=== PATIENT | female | born 1960 | race Caucasian/White ===

== ENCOUNTER → 2018-09-30 11:53 | Outpatient (CLI) | payer OTHER, SELFPAY ==
--- NOTE | 2018-09-30 | DI.RAD.S_ITS ---
PROCEDURE: XR HIP W PEL IF DONE LT 2V INDICATIONS: LEFT HIP PAIN TECHNIQUE: AP view of the pelvis and lateral view of the left hip were obtained. COMPARISON: None. FINDINGS: Bones: No fractures or dislocations. The visualized pelvic ring appears intact. Soft tissues: Round calcified pelvic phleboliths noted. Mild soft tissue calcifications adjacent the greater trochanters bilaterally, likely representing the sequela of chronic enthesopathy. IMPRESSION: No acute osseous abnormality of the left hip. Dictated by: Pedrito Calderon M.D. on 09/30/2018 at 13:39 Approved by: Pedrito Calderon M.D. on 09/30/2018 at 13:42
== END ==
PROVIDERS: PCP Family Medicine; Visit Provider Family Medicine
DX: M25.552 Pain in left hip (principal)
CPT/HCPCS: 73502

== ENCOUNTER → 2018-10-23 11:28 | Outpatient (CLI) | payer OTHER, SELFPAY ==
--- NOTE | 2018-10-23 | DI.MG.S_ITS ---
BILATERAL DIGITAL SCREENING MAMMOGRAM 3D/2D WITH CAD: 10/23/2018 CLINICAL: Routine screening. Family history of breast cancer. Comparison is made to exams dated: 09/19/2017 mammogram, 09/20/2016 mammogram, and 09/15/2015 mammogram - [facility]. There are scattered fibroglandular elements in both breasts. Current study was also evaluated with a Computer Aided Detection (CAD) system. There are benign calcifications in both breasts. No significant masses, calcifications, or other findings are seen in either breast. There has been no significant interval change. IMPRESSION: There is no mammographic evidence of malignancy. A 1 year screening mammogram is recommended. This exam was interpreted at Station ID: [id number]. NOTE: For mammograms, a report in lay terms will be sent to the patient. Approximately 15% of breast malignancies will not be visualized mammographically. In the management of a palpable breast mass, a negative mammogram must not discourage biopsy of a clinically suspicious lesion. Electronically Signed By: Tacho [email or web address]/[email or web address]:10/23/2018 12:58:56 copy to: Gabby Garcia letter sent: Normal Exam ACR BI-RADS Category 2: Benign Finding(s) [id number]
== END ==
PROVIDERS: Family Provider Obstetrics & Gynecology; PCP Family Medicine; Visit Provider Family Medicine
DX: Z12.31 Encounter for screening mammogram for malignant neoplasm of breast (principal); Z80.3 Family history of malignant neoplasm of breast
CPT/HCPCS: 77063; 77067

== ENCOUNTER 2019-02-08 13:45 | Outpatient (RCR) | payer BC, SELFPAY ==
--- NOTE | 2018-12-28 16:33 | PT.OIE ---
Current Diagnoses Sacroiliitis, not elsewhere classified (12/28/18) Low back pain (12/28/18) Trochanteric bursitis, left hip (12/28/18) Iliotibial band syndrome, left leg (12/28/18) Past Medical History (Last Reviewed 07/06/18 @ 12:18 by Jonathan Gracia MD) Allergic rhinitis (Chronic ~1979) Chronic back pain (Chronic ~1979) Osteoarthritis (Chronic Unknown) Restless leg syndrome (Chronic ~2009) Rosacea (Chronic Unknown) Sleep apnea (Chronic ~1979) Tinnitus of both ears (Chronic ~2010) Abnormal Pap smear of cervix (Resolved ~2016) Acne (Resolved ~1969) Anemia (Resolved ~1979) Ankle pain (Resolved ~1969) Carpal tunnel syndrome (Resolved 1996) Cataracts, bilateral (Resolved ~2009) Chickenpox (Resolved) De Quervain's syndrome (tenosynovitis) (Resolved ~1989) Fibroids (Resolved 1995) Foot pain (Resolved ~1979) Heavy menstrual period (Resolved ~1969) Measles (Resolved) Mumps (Resolved) Ovarian cyst (Resolved 2002) Painful menstrual periods (Resolved ~1969) Urinary incontinence (Resolved 1996) Abnormal Pap smear of cervix (Inactive) Acne (Inactive ~1969) Anemia (Inactive ~1979) Ankle pain (Inactive ~1969) Carpal tunnel syndrome (Inactive ~1996) Chronic back pain (Inactive ~1979) Fibroids (Inactive ~1995) Foot pain (Inactive ~1979) History of heavy periods (Inactive ~1969) History of painful menstruation (Inactive ~1969) Osteoarthritis (Inactive) Ovarian cyst (Inactive ~2002) Rosacea (Inactive) Seasonal allergies (Inactive ~1979) Sleep apnea (Inactive ~1979) Tinnitus (Inactive ~2010) Urinary incontinence (Inactive ~1996) Past Surgical History (Last Reviewed 07/06/18 @ 12:18 by Jonathan Gracia MD) Hx of partial cystectomy (Resolved 2002) Hx of thumb surgery (Resolved ~1994) History of carpal tunnel repair History of cataract removal with insertion of prosthetic lens (~2009) Status post hysterectomy (12/2007) Status post knee surgery (12/06/13) Status post knee surgery Status post knee surgery Status post rotator cuff repair Provider Visit Care Team Role Provider Type Chaitanya Andrews MD Primary Care Provider Physician Specialty: [facility] Address: [address] [place] [address], [id number] Email: Paul Wang MD Attending Provider Physician Specialty: Orthopedic Surgery Address: [address] [place] [address], [id number] Email: [email or web address] [facility] Initial Evaluation PT-OP-A Visit Information Start: 12/28/18 08:14 Freq: Status: Active Protocol: Document 12/28/18 09:30 AMB (Rec: 12/28/18 15:49 AMB [email or web address]) Out-Patient Physical Therapy Visit Information Visit Information Visit Type Initial Evaluation Visit Start Time 09:30 Visit Stop Time 10:15 Total Visit Minutes 45 Visit Number 1 PT-OP-B Current Condition Start: 12/28/18 08:14 Freq: Status: Active Protocol: Document 12/28/18 09:30 AMB (Rec: 12/28/18 09:38 AMB [id number]) Current Condition History of Current Condition Onset Date Years Current Complaints low back tightness History of Current Condition Myesha reports chronic low back pain that has been going on for years. At this point she has trouble walking when she first gets up. Walking feels ok while doing it, but then the back hurts during the last bit of the walk and afterwards. Sitting is helpful. This has been going on for years, but got worse after left hip pain which has now almost resolved. She kicked her leg and twisted and had left hip/groin pain. Back tightness is also bad in the morning, but better with movement. Prior Functional Status Baseline Function- ADL's Independent Baseline Function- Mobility Independent Current Functional Impairments (Reported) Functional Limitations- ADL's Pain with bed mobility Functional Limitations- Mobility/Gait Pain after 1/2 mile of walking . Personal Factors Other Personal Factors That May Effect Recent left hip pain. Therapy/Recovery Hysterectomy in 2007. Multiple knee arthroscopies. PT-OP-C Subjective Start: 12/28/18 08:14 Freq: Status: Active Protocol: Document 12/28/18 09:30 AMB (Rec: 12/28/18 15:49 AMB [email or web address]) OP-PT Pain Assessment Location Lower Back Pain Location Details Low back/ left groin Intensity 4 Scale Used Numeric (1 - 10) Description Tightness Frequency Constant Pain Aggravating Factors Changing Position ADL's Walking PT-OP-G Mobility & Gait Start: 12/28/18 08:14 Freq: Status: Active Protocol: Document 12/28/18 09:30 AMB (Rec: 12/28/18 16:05 AMB [email or web address]) OP Mobility Evaluation Bed Mobility Rolling Pain with rolling over in the morning PT-OP-J Posture/Palpation/Skin Start: 12/28/18 08:14 Freq: Status: Active Protocol: Document 12/28/18 09:30 AMB (Rec: 12/28/18 16:05 AMB [email or web address]) Posture Evaluation Comments Posture Comments Increased lumbar lordosis and anterior pelvic tilt and left shoulder high in standing. PT-OP-K Range of Motion Start: 12/28/18 08:14 Freq: Status: Active Protocol: Document 12/28/18 09:30 AMB (Rec: 12/28/18 16:05 AMB [email or web address]) Lumbar Spine Range of Motion Lumbar Spine Active Degrees Testing Position Standing Flexion 70 Extension 20 Lateral Flexion Left 20 Lateral Flexion Right 10 PT-OP-M Strength Start: 12/28/18 08:14 Freq: Status: Active Protocol: Document 12/28/18 09:30 AMB (Rec: 12/28/18 16:05 AMB [email or web address]) Hip Strength Hip Manual Muscle Testing Right Flexion (L2) 4+ Good+ Extension (S1) 4 Good Abduction 4+ Good+ Left Flexion (L2) 4- Good- Extension (S1) 3+ Fair+ Abduction 4- Good- PT-OP-Q Treatments Start: 12/28/18 08:14 Freq: Status: Active Protocol: Document 12/28/18 09:30 AMB (Rec: 12/28/18 16:32 AMB [email or web address]) Therapeutic Exercises Standing Exercises 1 Standing Exercise Name pelvic tilt Comments focus on posterior pelvic tilt Other Exercises 1 Other Exercise Name quadruped leg extension Comments physical cues for flat back PT-OP-T Assessment and Plan Start: 12/28/18 08:14 Freq: Status: Active Protocol: Document 12/28/18 09:30 AMB (Rec: 12/28/18 16:31 AMB [email or web address]) Physical Therapy Assessment Rehab Potential Rehabilitation Potential Good Evaluation Complexity Number of Personal Factors/Comorbidities 1-2 Impairments Impairments Gait Pain ROM Strength Goals Four Impairment ADLs Care Home Goal (LTG) Myesha will lift 10 pounds from the floor to waist height with 2/10 pain or less. LTG Duration 8 weeks Three Impairment Gait Food Stylist Goal (LTG) Myesha will walk for 1 mile with 2/10 pain or less. LTG Duration 8 weeks Two Impairment HEP Short Term Goal (STG) Myesha will be independent with a land and aquatic based HEP. STG Duration 4 weeks One Impairment Posture Short Term Goal (STG) Myesha will stand for 10 minutes with 2/10 pain and a neutral pelvic/ lumbar lordosis. STG Duration 4 weeks Assessment Summary Assessment Myesha attends physical therapy with a main concern of low back pain (pain worst over bilateral SI joints). She previously had left hip pain, but that has resolved well in her daily life, although was reproduced in testing with adductor stretch and resisted hip flexion. She is hoping to exercise in the pool, so we will incorporate aquatic therapy into her plan. She will benefit from core stability, focusing on the SI joint, although it was difficult to palpate due to her body habitus. She has also not met her deductible yet, which may be a limiting factor. Physical Therapy Plan Frequency and Duration Frequency of Treatment 2x/Week Duration of Treatment 8 weeks Plan of Care Start Date 12/28/18 Plan of Care End Date 02/22/19 Therapeutic Interventions Therapeutic Interventions Aquatic Therapy Home Exercise Program Manual Therapy Neuromuscular Re-education Self-Care/Home Management Therapeutic Activities Therapeutic Exercises Modalities Cold Pack/Ice Massage Electric Stimulation Ultrasound Next Visit Focus/Plan Next Note Type Treatment Note Next Visit Plan Progress core stability in quadruped, instruct in stretching HEP, start aquatic therapy
--- NOTE | 2018-12-28 16:34 | PT.OPPOC ---
Current Diagnoses Sacroiliitis, not elsewhere classified (12/28/18) Low back pain (12/28/18) Trochanteric bursitis, left hip (12/28/18) Iliotibial band syndrome, left leg (12/28/18) Provider Visit Care Team Role Provider Type Chaitanya Andrews MD Primary Care Provider Physician Specialty: [facility] Address: [address] [place] [address], [phone] Email: Paul Wang MD Attending Provider Physician Specialty: Orthopedic Surgery Address: [address] [place] [address], [phone] Email: [email or web address] Plan Of Care PT-OP-T Assessment and Plan Start: 12/28/18 08:14 Freq: Status: Active Protocol: Document 12/28/18 09:30 AMB (Rec: 12/28/18 16:31 AMB [email or web address]) Physical Therapy Assessment Rehab Potential Rehabilitation Potential Good Evaluation Complexity Number of Personal Factors/Comorbidities 1-2 Impairments Impairments Gait Pain ROM Strength Goals Four Impairment ADLs Dry Cell Sealer Goal (LTG) Myesha will lift 10 pounds from the floor to waist height with 2/10 pain or less. LTG Duration 8 weeks Three Impairment Gait Dry Cell Sealer Goal (LTG) Myesha will walk for 1 mile with 2/10 pain or less. LTG Duration 8 weeks Two Impairment HEP Short Term Goal (STG) Myesha will be independent with a land and aquatic based HEP. STG Duration 4 weeks One Impairment Posture Short Term Goal (STG) Myesha will stand for 10 minutes with 2/10 pain and a neutral pelvic/ lumbar lordosis. STG Duration 4 weeks Assessment Summary Assessment Myesha attends physical therapy with a main concern of low back pain (pain worst over bilateral SI joints). She previously had left hip pain, but that has resolved well in her daily life, although was reproduced in testing with adductor stretch and resisted hip flexion. She is hoping to exercise in the pool, so we will incorporate aquatic therapy into her plan. She will benefit from core stability, focusing on the SI joint, although it was difficult to palpate due to her body habitus. She has also not met her deductible yet, which may be a limiting factor. Physical Therapy Plan Frequency and Duration Frequency of Treatment 2x/Week Duration of Treatment 8 weeks Plan of Care Start Date 12/28/18 Plan of Care End Date 02/22/19 Therapeutic Interventions Therapeutic Interventions Aquatic Therapy Home Exercise Program Manual Therapy Neuromuscular Re-education Self-Care/Home Management Therapeutic Activities Therapeutic Exercises Modalities Cold Pack/Ice Massage Electric Stimulation Ultrasound Next Visit Focus/Plan Next Note Type Treatment Note Next Visit Plan Progress core stability in quadruped, instruct in stretching HEP, start aquatic therapy Plan of Care Dates Plan of Care Start Date 12/28/18 Plan of Care End Date 02/22/19 Please Sign and Return: I have reviewed this Plan of Care and certify that the skilled therapy services above are required to meet the patient?s needs. Physician Signature Date Printed Name and Credentials Clinical Instructor Signature Printed Name and Credentials
--- NOTE | 2018-12-30 12:00 | PT.OTN ---
Current Diagnoses Sacroiliitis, not elsewhere classified (12/30/18) Low back pain (12/30/18) Trochanteric bursitis, left hip (12/30/18) Iliotibial band syndrome, left leg (12/30/18) Physical Therapy Treatment Note PT-OP-A Visit Information Start: 12/28/18 08:14 Freq: Status: Active Protocol: Document 12/30/18 09:45 AMB (Rec: 12/30/18 10:08 AMB [id number]) Out-Patient Physical Therapy Visit Information Visit Information Visit Type Treatment Note Visit Start Time 09:45 Visit Stop Time 10:30 Total Visit Minutes 45 Visit Number 2 PT-OP-B Current Condition Start: 12/28/18 08:14 Freq: Status: Active Protocol: Document 12/28/18 09:30 AMB (Rec: 12/28/18 09:38 AMB [id number]) Current Condition History of Current Condition Onset Date Years Current Complaints low back tightness History of Current Condition Myesha reports chronic low back pain that has been going on for years. At this point she has trouble walking when she first gets up. Walking feels ok while doing it, but then the back hurts during the last bit of the walk and afterwards. Sitting is helpful. This has been going on for years, but got worse after left hip pain which has now almost resolved. She kicked her leg and twisted and had left hip/groin pain. Back tightness is also bad in the morning, but better with movement. Prior Functional Status Baseline Function- ADL's Independent Baseline Function- Mobility Independent Current Functional Impairments (Reported) Functional Limitations- ADL's Pain with bed mobility Functional Limitations- Mobility/Gait Pain after 1/2 mile of walking . Personal Factors Other Personal Factors That May Effect Recent left hip pain. Therapy/Recovery Hysterectomy in 2007. Multiple knee arthroscopies. PT-OP-C Subjective Start: 12/28/18 08:14 Freq: Status: Active Protocol: Document 12/30/18 09:45 AMB (Rec: 12/30/18 10:08 AMB [email or web address]) OP-PT Subjective Patient Comments Patient Comments Pt reports she felt a bit better after eval. PT-OP-G Mobility & Gait Start: 12/28/18 08:14 Freq: Status: Active Protocol: Document 12/28/18 09:30 AMB (Rec: 07/01/19 16:05 AMB [email or web address]) OP Mobility Evaluation Bed Mobility Rolling Pain with rolling over in the morning PT-OP-J Posture/Palpation/Skin Start: 12/28/18 08:14 Freq: Status: Active Protocol: Document 12/28/18 09:30 AMB (Rec: 12/28/18 16:05 AMB [email or web address]) Posture Evaluation Comments Posture Comments Increased lumbar lordosis and anterior pelvic tilt and left shoulder high in standing. PT-OP-K Range of Motion Start: 12/28/18 08:14 Freq: Status: Active Protocol: Document 12/28/18 09:30 AMB (Rec: 12/28/18 16:05 AMB [email or web address]) Lumbar Spine Range of Motion Lumbar Spine Active Degrees Testing Position Standing Flexion 70 Extension 20 Lateral Flexion Left 20 Lateral Flexion Right 10 PT-OP-M Strength Start: 12/28/18 08:14 Freq: Status: Active Protocol: Document 12/28/18 09:30 AMB (Rec: 12/28/18 16:05 AMB [email or web address]) Hip Strength Hip Manual Muscle Testing Right Flexion (L2) 4+ Good+ Extension (S1) 4 Good Abduction 4+ Good+ Left Flexion (L2) 4- Good- Extension (S1) 3+ Fair+ Abduction 4- Good- PT-OP-Q Treatments Start: 12/28/18 08:14 Freq: Status: Active Protocol: Document 12/30/18 09:45 AMB (Rec: 01/01/19 07:57 AMB [email or web address]) Therapeutic Exercises Supine Exercises 3 Supine Exercise Name LTR Reps/Minutes 10 2 Supine Exercise Name supine august with TrA/ posterior pelvic tilt Reps/Minutes 2x10 1 Supine Exercise Name pelvic tilts Reps/Minutes 10 Sitting Exercises 1 Sitting Exercise Name pelvic tilts Reps/Minutes 30 Standing Exercises 2 Standing Exercise Name mini squat Reps/Minutes 10 Comments with focus on flat lumbar spine Other Exercises 2 Other Exercise Name mundo pose Reps/Minutes 2x30 1 Other Exercise Name quadruped leg extension Comments physical cues for flat back PT-OP-T Assessment and Plan Start: 12/28/18 08:14 Freq: Status: Active Protocol: Document 12/30/18 09:45 AMB (Rec: 01/01/19 07:57 AMB [email or web address]) Physical Therapy Assessment Assessment Summary Assessment Myesha continues to wake up stiff, but overall felt better after last visit. She has been working on her posture and had better understanding of neutral pelvis today, although it is difficult to maintain. Physical Therapy Plan Next Visit Focus/Plan Next Note Type Treatment Note Next Visit Plan Progress core stability in quadruped, instruct in stretching HEP, progress into functional movements as able start aquatic therapy
--- NOTE | 2019-01-06 17:04 | PT.OTN ---
Current Diagnoses Sacroiliitis, not elsewhere classified (01/06/19) Low back pain (01/06/19) Trochanteric bursitis, left hip (01/06/19) Iliotibial band syndrome, left leg (01/06/19) Physical Therapy Treatment Note PT-OP-A Visit Information Start: 12/28/18 08:14 Freq: Status: Active Protocol: Document 01/06/19 16:57 SA (Rec: 01/06/19 17:04 SA [email or web address]) Out-Patient Physical Therapy Visit Information Visit Information Visit Type Treatment Note Visit Start Time 14:10 Visit Stop Time 14:55 Total Visit Minutes 45 Visit Number 3 Number of COKE LOADER Visits 1 PT-OP-B Current Condition Start: 12/28/18 08:14 Freq: Status: Active Protocol: Document 12/28/18 09:30 AMB (Rec: 12/28/18 09:38 AMB [id number]) Current Condition History of Current Condition Onset Date Years Current Complaints low back tightness History of Current Condition Myesha reports chronic low back pain that has been going on for years. At this point she has trouble walking when she first gets up. Walking feels ok while doing it, but then the back hurts during the last bit of the walk and afterwards. Sitting is helpful. This has been going on for years, but got worse after left hip pain which has now almost resolved. She kicked her leg and twisted and had left hip/groin pain. Back tightness is also bad in the morning, but better with movement. Prior Functional Status Baseline Function- ADL's Independent Baseline Function- Mobility Independent Current Functional Impairments (Reported) Functional Limitations- ADL's Pain with bed mobility Functional Limitations- Mobility/Gait Pain after 1/2 mile of walking . Personal Factors Other Personal Factors That May Effect Recent left hip pain. Therapy/Recovery Hysterectomy in 2007. Multiple knee arthroscopies. PT-OP-C Subjective Start: 12/28/18 08:14 Freq: Status: Active Protocol: Document 01/06/19 16:57 SA (Rec: 01/06/19 17:04 SA [email or web address]) OP-PT Subjective Patient Comments Patient Comments pt states she is doing HEP daily, has less SI and low back pain and is more aware of her posture while she plays piano. PT-OP-G Mobility & Gait Start: 12/28/18 08:14 Freq: Status: Active Protocol: Document 12/28/18 09:30 AMB (Rec: 12/28/18 16:05 AMB [email or web address]) OP Mobility Evaluation Bed Mobility Rolling Pain with rolling over in the morning PT-OP-J Posture/Palpation/Skin Start: 12/28/18 08:14 Freq: Status: Active Protocol: Document 12/28/18 09:30 AMB (Rec: 12/28/18 16:05 AMB [email or web address]) Posture Evaluation Comments Posture Comments Increased lumbar lordosis and anterior pelvic tilt and left shoulder high in standing. PT-OP-K Range of Motion Start: 12/28/18 08:14 Freq: Status: Active Protocol: Document 12/28/18 09:30 AMB (Rec: 12/28/18 16:05 AMB [email or web address]) Lumbar Spine Range of Motion Lumbar Spine Active Degrees Testing Position Standing Flexion 70 Extension 20 Lateral Flexion Left 20 Lateral Flexion Right 10 PT-OP-M Strength Start: 12/28/18 08:14 Freq: Status: Active Protocol: Document 12/28/18 09:30 AMB (Rec: 12/28/18 16:05 AMB [email or web address]) Hip Strength Hip Manual Muscle Testing Right Flexion (L2) 4+ Good+ Extension (S1) 4 Good Abduction 4+ Good+ Left Flexion (L2) 4- Good- Extension (S1) 3+ Fair+ Abduction 4- Good- PT-OP-Q Treatments Start: 12/28/18 08:14 Freq: Status: Active Protocol: Document 01/06/19 16:57 SA (Rec: 01/06/19 17:04 SA [email or web address]) Therapeutic Exercises Supine Exercises HS stretching Side bilateral Reps/Minutes 30 x 2 each TrA with SLR Side bilateral Reps/Minutes 5 x each 3 Supine Exercise Name LTR Reps/Minutes 15 2 Supine Exercise Name supine march with TrA/ posterior pelvic tilt Reps/Minutes 2x10 1 Supine Exercise Name pelvic tilts Reps/Minutes 10 x 5 Sitting Exercises 1 Sitting Exercise Name pelvic tilts Reps/Minutes 30 Standing Exercises 2 Standing Exercise Name mini squat Reps/Minutes 12 Comments with focus on flat lumbar spine Other Exercises 2 Other Exercise Name mundo pose Reps/Minutes 2x30 1 Other Exercise Name quadruped leg extension Reps/Minutes 10 x each Comments physical cues for flat back Manual Therapy Treatment Soft Tissue Mobilization STM L SI/sacral Body Location L SI/sacral area Mobilization Type Myofascial Release Rolling Sustained Pressure Intensity/Depth Moderate Body Position Prone Comments Well tolerated PT-OP-T Assessment and Plan Start: 12/28/18 08:14 Freq: Status: Active Protocol: Document 01/06/19 16:57 SA (Rec: 01/06/19 17:04 SA [email or web address]) Physical Therapy Assessment Assessment Summary Assessment Education for posture in seated and standing, use of mirror for visual feedback with PPT/Squats, correction on performance of clamshells for HEP. Physical Therapy Plan Next Visit Focus/Plan Next Note Type Treatment Note Next Visit Plan Progress core stability in quadruped, instruct in stretching HEP, progress into functional movements as able start aquatic therapy
--- NOTE | 2019-01-11 12:15 | PT.OTN ---
Current Diagnoses Sacroiliitis, not elsewhere classified (01/11/19) Low back pain (01/11/19) Trochanteric bursitis, left hip (01/11/19) Iliotibial band syndrome, left leg (01/11/19) Physical Therapy Treatment Note PT-OP-A Visit Information Start: 12/28/18 08:14 Freq: Status: Active Protocol: Document 01/11/19 12:15 SAK (Rec: 01/13/19 14:00 SAK [id number]) Out-Patient Physical Therapy Visit Information Visit Information Visit Type Aquatic Treatment Note Visit Start Time 12:15 Visit Stop Time 13:00 Total Visit Minutes 45 Visit Number 4 Number of BOOSTER PLANT OPERATOR Visits 0 PT-OP-B Current Condition Start: 12/28/18 08:14 Freq: Status: Active Protocol: Document 12/28/18 09:30 AMB (Rec: 12/28/18 09:38 AMB [id number]) Current Condition History of Current Condition Onset Date Years Current Complaints low back tightness History of Current Condition Myesha reports chronic low back pain that has been going on for years. At this point she has trouble walking when she first gets up. Walking feels ok while doing it, but then the back hurts during the last bit of the walk and afterwards. Sitting is helpful. This has been going on for years, but got worse after left hip pain which has now almost resolved. She kicked her leg and twisted and had left hip/groin pain. Back tightness is also bad in the morning, but better with movement. Prior Functional Status Baseline Function- ADL's Independent Baseline Function- Mobility Independent Current Functional Impairments (Reported) Functional Limitations- ADL's Pain with bed mobility Functional Limitations- Mobility/Gait Pain after 1/2 mile of walking . Personal Factors Other Personal Factors That May Effect Recent left hip pain. Therapy/Recovery Hysterectomy in 2007. Multiple knee arthroscopies. PT-OP-C Subjective Start: 12/28/18 08:14 Freq: Status: Active Protocol: Document 01/11/19 12:15 SAK (Rec: 01/13/19 14:00 SAK [id number]) OP-PT Subjective Patient Comments Patient Comments No new c/o, doing HEP, becoming more aware of her core musculature PT-OP-G Mobility & Gait Start: 12/28/18 08:14 Freq: Status: Active Protocol: Document 12/28/18 09:30 AMB (Rec: 12/28/18 16:05 AMB [email or web address]) OP Mobility Evaluation Bed Mobility Rolling Pain with rolling over in the morning PT-OP-J Posture/Palpation/Skin Start: 12/28/18 08:14 Freq: Status: Active Protocol: Document 12/28/18 09:30 AMB (Rec: 12/28/18 16:05 AMB [email or web address]) Posture Evaluation Comments Posture Comments Increased lumbar lordosis and anterior pelvic tilt and left shoulder high in standing. PT-OP-K Range of Motion Start: 12/28/18 08:14 Freq: Status: Active Protocol: Document 12/28/18 09:30 AMB (Rec: 12/28/18 16:05 AMB [email or web address]) Lumbar Spine Range of Motion Lumbar Spine Active Degrees Testing Position Standing Flexion 70 Extension 20 Lateral Flexion Left 20 Lateral Flexion Right 10 PT-OP-M Strength Start: 12/28/18 08:14 Freq: Status: Active Protocol: Document 12/28/18 09:30 AMB (Rec: 12/28/18 16:05 AMB [email or web address]) Hip Strength Hip Manual Muscle Testing Right Flexion (L2) 4+ Good+ Extension (S1) 4 Good Abduction 4+ Good+ Left Flexion (L2) 4- Good- Extension (S1) 3+ Fair+ Abduction 4- Good- PT-OP-Q Treatments Start: 12/28/18 08:14 Freq: Status: Active Protocol: Document 01/06/19 16:57 SA (Rec: 01/06/19 17:04 SA [email or web address]) Therapeutic Exercises Supine Exercises HS stretching Side bilateral Reps/Minutes 30 x 2 each TrA with SLR Side bilateral Reps/Minutes 5 x each 3 Supine Exercise Name LTR Reps/Minutes 15 2 Supine Exercise Name supine march with TrA/ posterior pelvic tilt Reps/Minutes 2x10 1 Supine Exercise Name pelvic tilts Reps/Minutes 10 x 5 Sitting Exercises 1 Sitting Exercise Name pelvic tilts Reps/Minutes 30 Standing Exercises 2 Standing Exercise Name mini squat Reps/Minutes 12 Comments with focus on flat lumbar spine Other Exercises 2 Other Exercise Name mundo pose Reps/Minutes 2x30 1 Other Exercise Name quadruped leg extension Reps/Minutes 10 x each Comments physical cues for flat back Manual Therapy Treatment Soft Tissue Mobilization STM L SI/sacral Body Location L SI/sacral area Mobilization Type Myofascial Release Rolling Sustained Pressure Intensity/Depth Moderate Body Position Prone Comments Well tolerated PT-OP-S Aquatic Treatment Start: 01/13/19 13:52 Freq: Status: Active Protocol: Document 01/11/19 12:15 SAK (Rec: 01/13/19 14:00 SAK [id number]) Aquatics Treatment Pool Entry/Exit Pool Entry/Exit Method Stairs Assistance Standby Assistance Water Walking august kick Water Level Chest Level Level of Assistance Verbal Cues march Water Level Chest Level Level of Assistance Verbal Cues Sideways Water Level Chest Level Level of Assistance Verbal Cues backwrd Water Level Chest Level Level of Assistance Verbal Cues forward Water Level Chest Level Level of Assistance Verbal Cues Lower Extremity Exercises circles Details cw and ccw Body Position Standing Water Level Chest Level knee flex/ext Body Position Standing Reps/Duration 10x hip ab/ad Body Position Standing Water Level Chest Level Reps/Duration 10x hip flex/ext Body Position Standing Water Level Chest Level Reps/Duration 10x squats Water Level Chest Level Comments verbal and manual cues Lower Extremity Stretches piriformis, hip ER Details chair position against pool wall Upper Extremity Exercises shoulder flex/ext Details yousif and unil Water Level Chest Level shoulder hor ab/ad Details yousif and unil Body Position Standing Water Level Chest Level Spinal Exercises deep water hang Body Position Standing Water Level [place] Equipment Small Noodle Reps/Duration 1 min x 3 Comments for spinal decompression wall squat core stab Details with UE movements Reps/Duration 10x [place] Activities [place] Activities Bicycle Cross Country Running Equipment small noodle PT-OP-T Assessment and Plan Start: 12/28/18 08:14 Freq: Status: Active Protocol: Document 01/11/19 12:15 [facility] (Rec: 01/13/19 14:00 [facility] [id number]) Physical Therapy Assessment Goals Four Impairment ADLs Intermediate Goal (LTG) Myesha will lift 10 pounds from the floor to waist height with 2/10 pain or less. LTG Duration 8 weeks Three Impairment Gait Intermediate Goal (LTG) Myesha will walk for 1 mile with 2/10 pain or less. LTG Duration 8 weeks Two Impairment HEP Short Term Goal (STG) Myesha will be independent with a land and aquatic based HEP. STG Duration 4 weeks One Impairment Posture Short Term Goal (STG) Myesha will stand for 10 minutes with 2/10 pain and a neutral pelvic/ lumbar lordosis. STG Duration 4 weeks Assessment Summary Assessment Good tolerance for aquatic therapy, frequent cues for postural alignment and core stabilization with all ther ex . Physical Therapy Plan Frequency and Duration Frequency of Treatment 2x/Week Duration of Treatment 8 weeks Plan of Care Start Date 12/28/18 Plan of Care End Date 02/22/19 Therapeutic Interventions Therapeutic Interventions Aquatic Therapy Home Exercise Program Manual Therapy Neuromuscular Re-education Self-Care/Home Management Therapeutic Activities Therapeutic Exercises Modalities Cold Pack/Ice Massage Electric Stimulation Ultrasound Next Visit Focus/Plan Next Note Type Treatment Note Next Visit Plan Continue PT per POC to decrease pain and improve function.
--- NOTE | 2019-01-22 16:41 | PT.OTN ---
Current Diagnoses Sacroiliitis, not elsewhere classified (01/22/19) Low back pain (01/22/19) Trochanteric bursitis, left hip (01/22/19) Iliotibial band syndrome, left leg (01/22/19) Physical Therapy Treatment Note PT-OP-A Visit Information Start: 12/28/18 08:14 Freq: Status: Active Protocol: Document 01/22/19 13:45 AMB (Rec: 01/22/19 14:48 AMB [id number]) Out-Patient Physical Therapy Visit Information Visit Information Visit Type Treatment Note Visit Start Time 13:45 Visit Stop Time 14:30 Total Visit Minutes 45 Visit Number 5 Number of TECHNOLOGY INTEGRATION SPECIALIST Visits 0 PT-OP-B Current Condition Start: 12/28/18 08:14 Freq: Status: Active Protocol: Document 12/28/18 09:30 AMB (Rec: 12/28/18 09:38 AMB [id number]) Current Condition History of Current Condition Onset Date Years Current Complaints low back tightness History of Current Condition Myesha reports chronic low back pain that has been going on for years. At this point she has trouble walking when she first gets up. Walking feels ok while doing it, but then the back hurts during the last bit of the walk and afterwards. Sitting is helpful. This has been going on for years, but got worse after left hip pain which has now almost resolved. She kicked her leg and twisted and had left hip/groin pain. Back tightness is also bad in the morning, but better with movement. Prior Functional Status Baseline Function- ADL's Independent Baseline Function- Mobility Independent Current Functional Impairments (Reported) Functional Limitations- ADL's Pain with bed mobility Functional Limitations- Mobility/Gait Pain after 1/2 mile of walking . Personal Factors Other Personal Factors That May Effect Recent left hip pain. Therapy/Recovery Hysterectomy in 2007. Multiple knee arthroscopies. PT-OP-C Subjective Start: 12/28/18 08:14 Freq: Status: Active Protocol: Document 01/22/19 13:45 AMB (Rec: 01/22/19 14:48 AMB [email or web address]) OP-PT Subjective Patient Comments Patient Comments Still feels back in the morning, but overall feeling better, has had a couple long car rides that would usually be painful and they weren't. PT-OP-G Mobility & Gait Start: 12/28/18 08:14 Freq: Status: Active Protocol: Document 12/28/18 09:30 AMB (Rec: 12/28/18 16:05 AMB [email or web address]) OP Mobility Evaluation Bed Mobility Rolling Pain with rolling over in the morning PT-OP-J Posture/Palpation/Skin Start: 12/28/18 08:14 Freq: Status: Active Protocol: Document 12/28/18 09:30 AMB (Rec: 12/28/18 16:05 AMB [email or web address]) Posture Evaluation Comments Posture Comments Increased lumbar lordosis and anterior pelvic tilt and left shoulder high in standing. PT-OP-K Range of Motion Start: 12/28/18 08:14 Freq: Status: Active Protocol: Document 12/28/18 09:30 AMB (Rec: 12/28/18 16:05 AMB [email or web address]) Lumbar Spine Range of Motion Lumbar Spine Active Degrees Testing Position Standing Flexion 70 Extension 20 Lateral Flexion Left 20 Lateral Flexion Right 10 PT-OP-M Strength Start: 12/28/18 08:14 Freq: Status: Active Protocol: Document 12/28/18 09:30 AMB (Rec: 12/28/18 16:05 AMB [email or web address]) Hip Strength Hip Manual Muscle Testing Right Flexion (L2) 4+ Good+ Extension (S1) 4 Good Abduction 4+ Good+ Left Flexion (L2) 4- Good- Extension (S1) 3+ Fair+ Abduction 4- Good- PT-OP-Q Treatments Start: 12/28/18 08:14 Freq: Status: Active Protocol: Document 01/22/19 13:45 AMB (Rec: 01/22/19 16:41 AMB [email or web address]) Therapeutic Exercises Supine Exercises HS stretching Side bilateral Reps/Minutes 30 x 2 each TrA with SLR Side bilateral Reps/Minutes 10 x each 3 Supine Exercise Name LTR Reps/Minutes 15 2 Supine Exercise Name supine march with TrA/ posterior pelvic tilt Reps/Minutes 2x10 Standing Exercises 3 Standing Exercise Name sidestepping in mini squat Resistance yellow tband Reps/Minutes 10'x4 2 Standing Exercise Name mini squat Reps/Minutes 12 Comments with focus on flat lumbar spine Other Exercises 1 Other Exercise Name quadruped leg extension Reps/Minutes 10 x each Comments physical cues for flat back Manual Therapy Treatment Soft Tissue Mobilization STM L SI/sacral Body Location L SI/sacral area Mobilization Type Myofascial Release Rolling Sustained Pressure Intensity/Depth Moderate Body Position Sidelying Comments Well tolerated PT-OP-S Aquatic Treatment Start: 01/13/19 13:52 Freq: Status: Active Protocol: Document 01/11/19 12:15 SAK (Rec: 01/13/19 14:00 SAK [id number]) Aquatics Treatment Pool Entry/Exit Pool Entry/Exit Method Stairs Assistance Standby Assistance Water Walking august Water Level Chest Level Level of Assistance Verbal Cues march Water Level Chest Level Level of Assistance Verbal Cues Sideways Water Level Chest Level Level of Assistance Verbal Cues backwrd Water Level Chest Level Level of Assistance Verbal Cues forward Water Level Chest Level Level of Assistance Verbal Cues Lower Extremity Exercises circles Details cw and ccw Body Position Standing Water Level Chest Level knee flex/ext Body Position Standing Reps/Duration 10x hip ab/ad Body Position Standing Water Level Chest Level Reps/Duration 10x hip flex/ext Body Position Standing Water Level Chest Level Reps/Duration 10x squats Water Level Chest Level Comments verbal and manual cues Lower Extremity Stretches piriformis, hip ER Details chair position against pool wall Upper Extremity Exercises shoulder flex/ext Details yousif and unil Water Level Chest Level shoulder hor ab/ad Details yousif and unil Body Position Standing Water Level Chest Level Spinal Exercises deep water hang Body Position Standing Water Level [place] Equipment Small Noodle Reps/Duration 1 min x 3 Comments for spinal decompression wall squat core stab Details with UE movements Reps/Duration 10x [place] Activities [place] Activities Bicycle Cross Country Running Equipment small noodle PT-OP-T Assessment and Plan Start: 12/28/18 08:14 Freq: Status: Active Protocol: Document 01/22/19 13:45 AMB (Rec: 01/22/19 15:13 AMB [email or web address]) Physical Therapy Assessment Assessment Summary Assessment Good tolerance for exercise today, tried to instruct in standing exercises, as pt finds these more convenient to do at home. Physical Therapy Plan Next Visit Focus/Plan Next Note Type Treatment Note Next Visit Plan Continue with land and aquatic based exercise for core stability
--- NOTE | 2019-01-25 17:46 | PT.OTN ---
Current Diagnoses Sacroiliitis, not elsewhere classified (01/25/19) Low back pain (01/25/19) Trochanteric bursitis, left hip (01/25/19) Iliotibial band syndrome, left leg (01/25/19) Physical Therapy Treatment Note PT-OP-A Visit Information Start: 12/28/18 08:14 Freq: Status: Active Protocol: Document 01/25/19 12:15 SAK (Rec: 01/25/19 17:46 SAK [id number]) Out-Patient Physical Therapy Visit Information Visit Information Visit Type Aquatic Treatment Note Visit Start Time 12:15 Visit Stop Time 13:00 Total Visit Minutes 45 Visit Number 6 Number of FOOD SERVICE HOTEL RUNNER Visits 0 PT-OP-B Current Condition Start: 12/28/18 08:14 Freq: Status: Active Protocol: Document 12/28/18 09:30 AMB (Rec: 12/28/18 09:38 AMB [id number]) Current Condition History of Current Condition Onset Date Years Current Complaints low back tightness History of Current Condition Myesha reports chronic low back pain that has been going on for years. At this point she has trouble walking when she first gets up. Walking feels ok while doing it, but then the back hurts during the last bit of the walk and afterwards. Sitting is helpful. This has been going on for years, but got worse after left hip pain which has now almost resolved. She kicked her leg and twisted and had left hip/groin pain. Back tightness is also bad in the morning, but better with movement. Prior Functional Status Baseline Function- ADL's Independent Baseline Function- Mobility Independent Current Functional Impairments (Reported) Functional Limitations- ADL's Pain with bed mobility Functional Limitations- Mobility/Gait Pain after 1/2 mile of walking . Personal Factors Other Personal Factors That May Effect Recent left hip pain. Therapy/Recovery Hysterectomy in 2007. Multiple knee arthroscopies. PT-OP-C Subjective Start: 12/28/18 08:14 Freq: Status: Active Protocol: Document 01/25/19 12:15 SAK (Rec: 01/25/19 17:46 SAK [id number]) OP-PT Subjective Patient Comments Patient Comments Reports she continues to improve and is noticing improved ability to decrease excessive lordosis in her back ; I was able to feel the back of the pew against my back at [employer]. PT-OP-G Mobility & Gait Start: 12/28/18 08:14 Freq: Status: Active Protocol: Document 12/28/18 09:30 AMB (Rec: 12/28/18 16:05 AMB [email or web address]) OP Mobility Evaluation Bed Mobility Rolling Pain with rolling over in the morning PT-OP-J Posture/Palpation/Skin Start: 12/28/18 08:14 Freq: Status: Active Protocol: Document 12/28/18 09:30 AMB (Rec: 12/28/18 16:05 AMB [email or web address]) Posture Evaluation Comments Posture Comments Increased lumbar lordosis and anterior pelvic tilt and left shoulder high in standing. PT-OP-K Range of Motion Start: 12/28/18 08:14 Freq: Status: Active Protocol: Document 12/28/18 09:30 AMB (Rec: 12/28/18 16:05 AMB [email or web address]) Lumbar Spine Range of Motion Lumbar Spine Active Degrees Testing Position Standing Flexion 70 Extension 20 Lateral Flexion Left 20 Lateral Flexion Right 10 PT-OP-M Strength Start: 12/28/18 08:14 Freq: Status: Active Protocol: Document 12/28/18 09:30 AMB (Rec: 12/28/18 16:05 AMB [email or web address]) Hip Strength Hip Manual Muscle Testing Right Flexion (L2) 4+ Good+ Extension (S1) 4 Good Abduction 4+ Good+ Left Flexion (L2) 4- Good- Extension (S1) 3+ Fair+ Abduction 4- Good- PT-OP-Q Treatments Start: 12/28/18 08:14 Freq: Status: Active Protocol: Document 01/22/19 13:45 AMB (Rec: 01/22/19 16:41 AMB [email or web address]) Therapeutic Exercises Supine Exercises HS stretching Side bilateral Reps/Minutes 30 x 2 each TrA with SLR Side bilateral Reps/Minutes 10 x each 3 Supine Exercise Name LTR Reps/Minutes 15 2 Supine Exercise Name supine march with TrA/ posterior pelvic tilt Reps/Minutes 2x10 Standing Exercises 3 Standing Exercise Name sidestepping in mini squat Resistance yellow tband Reps/Minutes 10'x4 2 Standing Exercise Name mini squat Reps/Minutes 12 Comments with focus on flat lumbar spine Other Exercises 1 Other Exercise Name quadruped leg extension Reps/Minutes 10 x each Comments physical cues for flat back Manual Therapy Treatment Soft Tissue Mobilization STM L SI/sacral Body Location L SI/sacral area Mobilization Type Myofascial Release Rolling Sustained Pressure Intensity/Depth Moderate Body Position Sidelying Comments Well tolerated PT-OP-S Aquatic Treatment Start: 01/13/19 13:52 Freq: Status: Active Protocol: Document 01/25/19 12:15 SAK (Rec: 01/25/19 17:46 SAK [id number]) Aquatics Treatment Pool Entry/Exit Pool Entry/Exit Method Stairs Assistance Standby Assistance Water Walking august kick Water Level Chest Level Level of Assistance Verbal Cues march Water Level Chest Level Level of Assistance Verbal Cues Sideways Water Level Chest Level Level of Assistance Verbal Cues backwrd Water Level Chest Level Level of Assistance Verbal Cues forward Water Level Chest Level Level of Assistance Verbal Cues Lower Extremity Exercises circles Details cw and ccw Body Position Standing Water Level Chest Level knee flex/ext Body Position Standing Reps/Duration 10x hip ab/ad Body Position Standing Water Level Chest Level Reps/Duration 10x hip flex/ext Body Position Standing Water Level Chest Level Reps/Duration 10x squats Water Level Chest Level Comments verbal and manual cues Lower Extremity Stretches HS Water Level [place] Comments at wall IT band Body Position Standing Equipment Small Noodle Upper Extremity Exercises shoulder flex/ext Details yousif and unil Water Level Chest Level shoulder hor ab/ad Details yousif and unil Body Position Standing Water Level Chest Level Spinal Exercises Deep water DLS Body Position Standing Water Level [place] Equipment barbells Reps/Duration 6 min deep water hang Body Position Standing Water Level [place] Equipment Small Noodle Reps/Duration 1 min x 3 Comments for spinal decompression [place] Activities [place] Activities Bicycle Bicycle Backwards Cross [place] Running Equipment long barbell for backwards Comments cues for posture and core stab , LE alignment PT-OP-T Assessment and Plan Start: 12/28/18 08:14 Freq: Status: Active Protocol: Document 01/25/19 12:15 SAK (Rec: 01/25/19 17:46 [facility] [id number]) Physical Therapy Assessment Goals Four Impairment ADLs Repairer Recreational Vehicle Goal (LTG) Myesha will lift 10 pounds from the floor to waist height with 2/10 pain or less. LTG Duration 8 weeks Three Impairment Gait Retirement Goal (LTG) Myesha will walk for 1 mile with 2/10 pain or less. LTG Duration 8 weeks Two Impairment HEP Short Term Goal (STG) Myesha will be independent with a land and aquatic based HEP. STG Duration 4 weeks One Impairment Posture Short Term Goal (STG) Myesha will stand for 10 minutes with 2/10 pain and a neutral pelvic/ lumbar lordosis. STG Duration 4 weeks Progress Towards Goals Progress Towards Goals Progressing Toward Goals Assessment Summary Assessment Able to progress aquatic exercise, patient demonstrating improved postural awareness. Good progress with decreasing pain and improving function Physical Therapy Plan Frequency and Duration Frequency of Treatment 2x/Week Duration of Treatment 8 weeks Plan of Care Start Date 12/28/18 Plan of Care End Date 02/22/19 Therapeutic Interventions Therapeutic Interventions Aquatic Therapy Home Exercise Program Manual Therapy Neuromuscular Re-education Self-Care/Home Management Therapeutic Activities Therapeutic Exercises Modalities Cold Pack/Ice Massage Electric Stimulation Ultrasound Next Visit Focus/Plan Next Note Type Treatment Note Next Visit Plan Continue with land and aquatic based exercise for core stability
--- NOTE | 2019-02-05 16:39 | PT.OTN ---
Current Diagnoses Sacroiliitis, not elsewhere classified (02/05/19) Low back pain (02/05/19) Trochanteric bursitis, left hip (02/05/19) Iliotibial band syndrome, left leg (02/05/19) Physical Therapy Treatment Note PT-OP-A Visit Information Start: 12/28/18 08:14 Freq: Status: Active Protocol: Document 02/05/19 15:15 HH (Rec: 02/05/19 16:39 HH [email or web address]) Out-Patient Physical Therapy Visit Information Visit Information Visit Type Treatment Note Visit Start Time 15:15 Visit Stop Time 16:00 Total Visit Minutes 45 Visit Number 7 Number of [employer] PROFESSOR Visits 0 PT-OP-B Current Condition Start: 12/28/18 08:14 Freq: Status: Active Protocol: Document 12/28/18 09:30 AMB (Rec: 12/28/18 09:38 AMB [id number]) Current Condition History of Current Condition Onset Date Years Current Complaints low back tightness History of Current Condition Myesha reports chronic low back pain that has been going on for years. At this point she has trouble walking when she first gets up. Walking feels ok while doing it, but then the back hurts during the last bit of the walk and afterwards. Sitting is helpful. This has been going on for years, but got worse after left hip pain which has now almost resolved. She kicked her leg and twisted and had left hip/groin pain. Back tightness is also bad in the morning, but better with movement. Prior Functional Status Baseline Function- ADL's Independent Baseline Function- Mobility Independent Current Functional Impairments (Reported) Functional Limitations- ADL's Pain with bed mobility Functional Limitations- Mobility/Gait Pain after 1/2 mile of walking . Personal Factors Other Personal Factors That May Effect Recent left hip pain. Therapy/Recovery Hysterectomy in 2007. Multiple knee arthroscopies. PT-OP-C Subjective Start: 12/28/18 08:14 Freq: Status: Active Protocol: Document 02/05/19 15:15 HH (Rec: 02/05/19 16:39 HH [email or web address]) OP-PT Subjective Patient Comments Patient Comments reports she doesnt have too much L hip pain but her back and knee have been bothering her a lot. PT-OP-G Mobility & Gait Start: 12/28/18 08:14 Freq: Status: Active Protocol: Document 12/28/18 09:30 AMB (Rec: 12/28/18 16:05 AMB [email or web address]) OP Mobility Evaluation Bed Mobility Rolling Pain with rolling over in the morning PT-OP-J Posture/Palpation/Skin Start: 12/28/18 08:14 Freq: Status: Active Protocol: Document 12/28/18 09:30 AMB (Rec: 12/28/18 16:05 AMB [email or web address]) Posture Evaluation Comments Posture Comments Increased lumbar lordosis and anterior pelvic tilt and left shoulder high in standing. PT-OP-K Range of Motion Start: 12/28/18 08:14 Freq: Status: Active Protocol: Document 12/28/18 09:30 AMB (Rec: 12/28/18 16:05 AMB [email or web address]) Lumbar Spine Range of Motion Lumbar Spine Active Degrees Testing Position Standing Flexion 70 Extension 20 Lateral Flexion Left 20 Lateral Flexion Right 10 PT-OP-M Strength Start: 12/28/18 08:14 Freq: Status: Active Protocol: Document 12/28/18 09:30 AMB (Rec: 12/28/18 16:05 AMB [email or web address]) Hip Strength Hip Manual Muscle Testing Right Flexion (L2) 4+ Good+ Extension (S1) 4 Good Abduction 4+ Good+ Left Flexion (L2) 4- Good- Extension (S1) 3+ Fair+ Abduction 4- Good- PT-OP-Q Treatments Start: 12/28/18 08:14 Freq: Status: Active Protocol: Document 02/05/19 15:15 HH (Rec: 02/05/19 16:39 HH [email or web address]) Therapeutic Exercises Supine Exercises 2 Supine Exercise Name supine august with TrA/ posterior pelvic tilt Reps/Minutes 2x10 Comments cues on abd engagement 1 Supine Exercise Name pelvic tilts Reps/Minutes 10 x5 Comments cues on abd engagement Standing Exercises hurdles step over Side bilateral Equipment Used within //bar Reps/Minutes 10 mins Comments arms open, cues on heel strike hurdles unilateral step over Side bilateral Equipment Used within //bar Reps/Minutes 15 mins Comments arms open, cues on WB on medial of the foot single leg stance Side bilateral Equipment Used within //bar Reps/Minutes as saray x 5 Comments arms open PT-OP-S Aquatic Treatment Start: 01/13/19 13:52 Freq: Status: Active Protocol: Document 01/25/19 12:15 SAK (Rec: 01/25/19 17:46 SAK [id number]) Aquatics Treatment Pool Entry/Exit Pool Entry/Exit Method Stairs Assistance Standby Assistance Water Walking august kick Water Level Chest Level Level of Assistance Verbal Cues march Water Level Chest Level Level of Assistance Verbal Cues Sideways Water Level Chest Level Level of Assistance Verbal Cues backwrd Water Level Chest Level Level of Assistance Verbal Cues forward Water Level Chest Level Level of Assistance Verbal Cues Lower Extremity Exercises circles Details cw and ccw Body Position Standing Water Level Chest Level knee flex/ext Body Position Standing Reps/Duration 10x hip ab/ad Body Position Standing Water Level Chest Level Reps/Duration 10x hip flex/ext Body Position Standing Water Level Chest Level Reps/Duration 10x squats Water Level Chest Level Comments verbal and manual cues Lower Extremity Stretches HS Water Level [place] Comments at wall IT band Body Position Standing Equipment Small Noodle Upper Extremity Exercises shoulder flex/ext Details yousif and unil Water Level Chest Level shoulder hor ab/ad Details yousif and unil Body Position Standing Water Level Chest Level Spinal Exercises Deep water DLS Body Position Standing Water Level [place] Equipment barbells Reps/Duration 6 min deep water hang Body Position Standing Water Level [place] Equipment Small Noodle Reps/Duration 1 min x 3 Comments for spinal decompression [place] Activities [place] Activities Bicycle Bicycle Backwards [place] Running Equipment long barbell for backwards Comments cues for posture and core stab , LE alignment PT-OP-T Assessment and Plan Start: 12/28/18 08:14 Freq: Status: Active Protocol: Document 02/05/19 15:15 HH (Rec: 02/05/19 16:39 [email or web address]) Physical Therapy Assessment Assessment Summary Assessment Noticeable bilateral hip drop R>L and excessive lateral shift during gait. Today focused primarily on single leg balance and hip control during stance phase. Pt did show improved hip drop at the end of session. Physical Therapy Plan Next Visit Focus/Plan Next Note Type Treatment Note Next Visit Plan single leg balance ex, hip control strengthening. Continue with land and aquatic based exercise for core stability
--- NOTE | 2019-02-08 16:05 | PT.OTN ---
Current Diagnoses Sacroiliitis, not elsewhere classified (02/08/19) Low back pain (02/08/19) Trochanteric bursitis, left hip (02/08/19) Iliotibial band syndrome, left leg (02/08/19) Physical Therapy Treatment Note PT-OP-A Visit Information Start: 12/28/18 08:14 Freq: Status: Active Protocol: Document 02/08/19 13:45 AMB (Rec: 02/08/19 15:38 AMB [id number]) Out-Patient Physical Therapy Visit Information Visit Information Visit Type Treatment Note Visit Start Time 13:45 Visit Stop Time 14:30 Total Visit Minutes 45 Visit Number 8 Number of A R COLLECTIONS REP Visits 0 PT-OP-B Current Condition Start: 12/28/18 08:14 Freq: Status: Active Protocol: Document 12/28/18 09:30 AMB (Rec: 12/28/18 09:38 AMB [id number]) Current Condition History of Current Condition Onset Date Years Current Complaints low back tightness History of Current Condition Myesha reports chronic low back pain that has been going on for years. At this point she has trouble walking when she first gets up. Walking feels ok while doing it, but then the back hurts during the last bit of the walk and afterwards. Sitting is helpful. This has been going on for years, but got worse after left hip pain which has now almost resolved. She kicked her leg and twisted and had left hip/groin pain. Back tightness is also bad in the morning, but better with movement. Prior Functional Status Baseline Function- ADL's Independent Baseline Function- Mobility Independent Current Functional Impairments (Reported) Functional Limitations- ADL's Pain with bed mobility Functional Limitations- Mobility/Gait Pain after 1/2 mile of walking . Personal Factors Other Personal Factors That May Effect Recent left hip pain. Therapy/Recovery Hysterectomy in 2007. Multiple knee arthroscopies. PT-OP-C Subjective Start: 12/28/18 08:14 Freq: Status: Active Protocol: Document 02/08/19 13:45 AMB (Rec: 02/08/19 15:38 AMB [id number]) OP-PT Subjective Patient Comments Patient Comments Myesha states she overdid it with her balance exercises and that she has been having increase L thoracic pain for the past day, worst with twisting. PT-OP-G Mobility & Gait Start: 12/28/18 08:14 Freq: Status: Active Protocol: Document 12/28/18 09:30 AMB (Rec: 12/28/18 16:05 AMB [email or web address]) OP Mobility Evaluation Bed Mobility Rolling Pain with rolling over in the morning PT-OP-J Posture/Palpation/Skin Start: 12/28/18 08:14 Freq: Status: Active Protocol: Document 12/28/18 09:30 AMB (Rec: 12/28/18 16:05 AMB [email or web address]) Posture Evaluation Comments Posture Comments Increased lumbar lordosis and anterior pelvic tilt and left shoulder high in standing. PT-OP-K Range of Motion Start: 12/28/18 08:14 Freq: Status: Active Protocol: Document 12/28/18 09:30 AMB (Rec: 12/28/18 16:05 AMB [email or web address]) Lumbar Spine Range of Motion Lumbar Spine Active Degrees Testing Position Standing Flexion 70 Extension 20 Lateral Flexion Left 20 Lateral Flexion Right 10 PT-OP-M Strength Start: 12/28/18 08:14 Freq: Status: Active Protocol: Document 12/28/18 09:30 AMB (Rec: 12/28/18 16:05 AMB [email or web address]) Hip Strength Hip Manual Muscle Testing Right Flexion (L2) 4+ Good+ Extension (S1) 4 Good Abduction 4+ Good+ Left Flexion (L2) 4- Good- Extension (S1) 3+ Fair+ Abduction 4- Good- PT-OP-Q Treatments Start: 12/28/18 08:14 Freq: Status: Active Protocol: Document 02/08/19 13:45 AMB (Rec: 02/09/19 09:37 AMB [email or web address]) Therapeutic Exercises Sidelying Exercises 2 Sidelying Exercise Name hip ER Reps/Minutes 10 1 Sidelying Exercise Name hip abd Reps/Minutes 10 Sitting Exercises 1 Sitting Exercise Name pelvic tilts Reps/Minutes 30 Manual Therapy Treatment Soft Tissue Mobilization 1 Body Location L thoracolumbar Mobilization Type Manual Lymphatic Drainage Sustained Pressure Intensity/Depth Moderate Body Position Sidelying STM L SI/sacral Body Location L SI/sacral area Mobilization Type Myofascial Release Rolling Sustained Pressure Intensity/Depth Moderate Body Position Sidelying Comments Well tolerated PT-OP-R Modalities Start: 02/09/19 09:28 Freq: Status: Active Protocol: Document 02/08/19 13:45 AMB (Rec: 02/09/19 09:38 AMB [email or web address]) Hot Pack/Cold Pack Treatment Hot Pack Location mid back Patient Position Hooklying Treatment Duration (minutes) 15 PT-OP-S Aquatic Treatment Start: 01/13/19 13:52 Freq: Status: Active Protocol: Document 01/25/19 12:15 SAK (Rec: 01/25/19 17:46 SAK [id number]) Aquatics Treatment Pool Entry/Exit Pool Entry/Exit Method Stairs Assistance Standby Assistance Water Walking august kick Water Level Chest Level Level of Assistance Verbal Cues march Water Level Chest Level Level of Assistance Verbal Cues Sideways Water Level Chest Level Level of Assistance Verbal Cues backwrd Water Level Chest Level Level of Assistance Verbal Cues forward Water Level Chest Level Level of Assistance Verbal Cues Lower Extremity Exercises circles Details cw and ccw Body Position Standing Water Level Chest Level knee flex/ext Body Position Standing Reps/Duration 10x hip ab/ad Body Position Standing Water Level Chest Level Reps/Duration 10x hip flex/ext Body Position Standing Water Level Chest Level Reps/Duration 10x squats Water Level Chest Level Comments verbal and manual cues Lower Extremity Stretches HS Water Level [place] Comments at wall IT band Body Position Standing Equipment Small Noodle Upper Extremity Exercises shoulder flex/ext Details yousif and unil Water Level Chest Level shoulder hor ab/ad Details yousif and unil Body Position Standing Water Level Chest Level Spinal Exercises Deep water DLS Body Position Standing Water Level [place] Equipment barbells Reps/Duration 6 min deep water hang Body Position Standing Water Level [place] Equipment Small Noodle Reps/Duration 1 min x 3 Comments for spinal decompression [place] Activities [place] Activities Bicycle Bicycle Backwards [place] Running Equipment long barbell for backwards Comments cues for posture and core stab , LE alignment PT-OP-T Assessment and Plan Start: 12/28/18 08:14 Freq: Status: Active Protocol: Document 02/08/19 13:45 AMB (Rec: 02/08/19 15:38 AMB [id number]) Physical Therapy Assessment Assessment Summary Assessment Hip drop continues, but pt was likely compensating with L parascapular musculature and this flared her pain, will try to find appropriate exercises that she can do without compensating at Physical Therapy Plan Next Visit Focus/Plan Next Note Type Treatment Note Next Visit Plan Reassess balance training when pain flare has reduced
--- NOTE | 2019-05-13 08:59 | PT.OPDS ---
Current Diagnoses Sacroiliitis, not elsewhere classified (02/08/19) Low back pain (02/08/19) Trochanteric bursitis, left hip (02/08/19) Iliotibial band syndrome, left leg (02/08/19) Visit Care Team Role Provider Type Chaitanya Andrews MD Primary Care Provider Physician Specialty: Family Practice Address: [address] [place] [address], [facility] [place], [address] Email: [email or web address] Paul Wang MD Attending Provider Physician Specialty: Orthopedic Surgery Address: [address] [place] [address], [place], [address] Email: [email or web address] Visit Number Visit Number 8 Discharge Summary PT-OP-B Current Condition Start: 12/28/18 08:14 Freq: Status: Active Protocol: Document 12/28/18 09:30 AMB (Rec: 12/28/18 09:38 AMB [id number]) Current Condition History of Current Condition Onset Date Years Current Complaints low back tightness History of Current Condition Myesha reports chronic low back pain that has been going on for years. At this point she has trouble walking when she first gets up. Walking feels ok while doing it, but then the back hurts during the last bit of the walk and afterwards. Sitting is helpful. This has been going on for years, but got worse after left hip pain which has now almost resolved. She kicked her leg and twisted and had left hip/groin pain. Back tightness is also bad in the morning, but better with movement. Prior Functional Status Baseline Function- ADL's Independent Baseline Function- Mobility Independent Current Functional Impairments (Reported) Functional Limitations- ADL's Pain with bed mobility Functional Limitations- Mobility/Gait Pain after 1/2 mile of walking . Personal Factors Other Personal Factors That May Effect Recent left hip pain. Therapy/Recovery Hysterectomy in 2007. Multiple knee arthroscopies. PT-OP-C Subjective Start: 12/28/18 08:14 Freq: Status: Active Protocol: Document 02/08/19 13:45 AMB (Rec: 02/08/19 15:38 AMB [id number]) OP-PT Subjective Patient Comments Patient Comments Myesha states she overdid it with her balance exercises and that she has been having increase L thoracic pain for the past day, worst with twisting. PT-OP-G Mobility & Gait Start: 12/28/18 08:14 Freq: Status: Active Protocol: Document 12/28/18 09:30 AMB (Rec: 12/28/18 16:05 AMB [email or web address]) OP Mobility Evaluation Bed Mobility Rolling Pain with rolling over in the morning PT-OP-J Posture/Palpation/Skin Start: 12/28/18 08:14 Freq: Status: Active Protocol: Document 12/28/18 09:30 AMB (Rec: 12/28/18 16:05 AMB [email or web address]) Posture Evaluation Comments Posture Comments Increased lumbar lordosis and anterior pelvic tilt and left shoulder high in standing. PT-OP-K Range of Motion Start: 12/28/18 08:14 Freq: Status: Active Protocol: Document 12/28/18 09:30 AMB (Rec: 12/28/18 16:05 AMB [email or web address]) Lumbar Spine Range of Motion Lumbar Spine Active Degrees Testing Position Standing Flexion 70 Extension 20 Lateral Flexion Left 20 Lateral Flexion Right 10 PT-OP-M Strength Start: 12/28/18 08:14 Freq: Status: Active Protocol: Document 12/28/18 09:30 AMB (Rec: 12/28/18 16:05 AMB [email or web address]) Hip Strength Hip Manual Muscle Testing Right Flexion (L2) 4+ Good+ Extension (S1) 4 Good Abduction 4+ Good+ Left Flexion (L2) 4- Good- Extension (S1) 3+ Fair+ Abduction 4- Good- PT-OP-T Assessment and Plan Start: 12/28/18 08:14 Freq: Status: Active Protocol: Document 05/13/19 08:55 AMB (Rec: 05/13/19 08:59 AMB [email or web address]) Physical Therapy Assessment Goals Four Impairment ADLs Intermediate Goal (LTG) Myesha will lift 10 pounds from the floor to waist height with 2/10 pain or less. LTG Duration 8 weeks Three Impairment Gait Intermediate Goal (LTG) Myesha will walk for 1 mile with 2/10 pain or less. LTG Duration 8 weeks Two Impairment HEP Short Term Goal (STG) Myesha will be independent with a land and aquatic based HEP. STG Duration MET One Impairment Posture Short Term Goal (STG) Myesha will stand for 10 minutes with 2/10 pain and a neutral pelvic/ lumbar lordosis. STG Duration 4 weeks Assessment Summary Assessment Pt attended 8 visits of physical therapy for both land and aquatic based PT. At her last visit she did have a low back pain flare. Her hip pain was under control. She called to cancel her last remaining appointment stating that she was doing good enough . She made progress toward her goals, but continued to have signficant gait deviation that increased her compensations that likely contribute to her back pain. Physical Therapy Plan Discharge Physical Therapy Discharge Reasons No Longer Attending PT
== END 2019-05-14 09:46 ==
LOC: PHYS 13:45
PROVIDERS: PCP Family Medicine; Visit Provider Orthopaedic Surgery
DX: M70.62 Trochanteric bursitis, left hip (principal); M76.32 Iliotibial band syndrome, left leg; M54.5 Low back pain; M46.1 Sacroiliitis, not elsewhere classified
CPT/HCPCS: 97010; 97110; 97113; 97140; 97161

== ENCOUNTER 2019-05-29 15:00 | Emergency (ER) | payer BC, SELFPAY ==
--- NOTE | 2019-05-29 15:11 | DI.RAD.S_ITS ---
PROCEDURE: XR WRIST RT MIN 3V INDICATIONS: injury TECHNIQUE: 4 views of the wrist were acquired. COMPARISON: [facility], CR, XR FOREARM RT 2V, 05/29/2019, 15:17. FINDINGS: Bones: There is an impacted, comminuted fracture of the distal radius, with intra-articular involvement. No accompanying ulnar styloid fracture can be seen. Age-appropriate bony degenerative changes are seen. No suspicious lytic or blastic lesions are seen. Scaphoid view: No navicular fractures are seen. Soft tissues: No suspicious soft tissue calcifications. IMPRESSION: Impacted, intra-articular distal radius fracture. Dictated by: Zaki Soto M.D. on 05/29/2019 at 14:37 Approved by: Zaki Soto M.D. on 05/29/2019 at 14:38
[2019-05-29 15:15] VITALS: BP 167/9; PULSE 75; RESP 14; TEMP 36.3; O2SAT 96
--- NOTE | 2019-05-29 15:17 | PC.NURSE ---
pt reports she fell into a stack of plastic tubs and tried to catch herself and injured R wrist by bending wrist backward. 2+ pulse. mild deformity with some swelling.
--- NOTE | 2019-05-29 15:18 | DI.RAD.S_ITS ---
PROCEDURE: XR FOREARM RT 2V INDICATIONS: pain sp fall TECHNIQUE: 2 views of the forearm were acquired. COMPARISON: [facility], , XR WRIST RT MIN 3V, 05/29/2019, 15:14. FINDINGS: Bones: There is impacted, intra-articular distal radius fracture. Age-appropriate bony degenerative changes are seen. No suspicious lytic or blastic lesions are seen. Soft tissues: No suspicious soft tissue calcifications or masses. IMPRESSION: Impacted, intra-articular distal radius fracture. Dictated by: Zaki Soto M.D. on 05/29/2019 at 14:38 Approved by: Zaki Soto M.D. on 05/29/2019 at 14:39
--- NOTE | 2019-05-29 16:11 | ED_ITS ---
HPI - Extremity Injury (Upper) <Alta Meadows, OUTSOLE CUTTER MACHINE-BC - Last Filed: 05/29/19 17:05> General Chief Complaint: Extremity Injury, Upper Stated Complaint: fall, right wrist thinks is broken Time Seen by Provider: 05/29/19 15:08 Source: patient and family Mode of arrival: Ambulatory Limitations: no limitations History of Present Illness HPI narrative: The patient is a 58-year-old female nonsmoker who presents with a chief complaint of a FOOSH injury to her right wrist. She states that she tripped and fell, landing on an outstretched hand. She complains of right wrist pain. She denies any right hand pain. She states the pain is also in her forearm. She denies any right shoulder pain. She has taken 100 mg of ibuprofen and applied ice to her wrist. She states she has history of carpal tunnel surgery on the wrist she states it happened earlier today. Related Data Home Medications Medication Instructions Recorded Confirmed CA PANTOTHENATE/FOLIC ACID/VIT 1 tab PO Q DAY #0 11/26/11 12/25/18 (MULTIVITAMIN) VITAMIN D (Vitamin D3) 1,000 unit PO QDAY #0 11/26/11 12/25/18 [IRON ] 45 mg PO QDAY #0 11/26/11 12/25/18 ascorbic acid (vitamin C) 500 mg PO QDAY #0 11/26/11 12/25/18 calcium carbonate-vitamin D3 1 PO BID #0 12/13/11 12/25/18 [Calcium 600 with Vitamin D3] Respironics Dreamstation CPAP #1 ea 12/24/18 12/24/18 sertraline 100 mg tablet 100 mg PO DAILY 12/25/18 12/25/18 Previous Rx's Medication Instructions Recorded oxybutynin chloride 5 mg tablet 5 mg PO BID #180 tab 11/03/17 etodolac 400 mg tablet 400 mg PO BID #180 tab 02/26/19 hydrocodone-acetaminophen [[place]] 1 tab PO Q4-6H PRN #10 tab 05/29/19 Allergies Allergy/AdvReac Type Severity Reaction Status Date / Time prochlorperazine Allergy Severe LOSE Verified 07/06/18 11:48 [PROCHLORPERAZINE] MUSCLE CONTROL/THROAT SWELLING adhesive tape [ADHESIVE TAPE] Allergy Intermediate BLISTERS---PAPER Verified 07/06/18 11:48 TAPE IS OK cefotetan [CEFOTETAN] Allergy Intermediate RASH Verified 07/06/18 11:48 Review of Systems <CELESTE Springer - Last Filed: 05/29/19 17:05> Review of Systems Narrative: GENERAL: Denies chills, fatigue, malaise, fever, sweats. HEENT: Denies sinus pain, ear pain, sore throat, difficulty swallowing, dizziness. RESPIRATORY: Denies dyspnea, cough, wheezing, hemoptysis, sputum. CARDIOVASCULAR: Denies chest pain, palpitations, orthopnea, edema, GASTROINTESTINAL: Denies nausea, vomiting, abdominal pain, diarrhea, constipation, melena. : Denies dysuria, frequency, incontinence, hematuria, urinary retention. MUSCULOSKELETAL: See HPI SKIN: Denies rash, skin lesions, or other NEUROLOGIC: Denies weakness, headache, numbness, change in speech, confusion, seizures, incoordination. PSYCHIATRIC: No concerning psychosocial issues. 12 point review of systems is negative except for those stated above Patient History <CELESTE Springer - Last Filed: 05/29/19 17:05> Medical History Abnormal Pap smear of cervix (Inactive) Abnormal Pap smear of cervix (Resolved ~2016) Acne (Inactive ~1969) Acne (Resolved ~1969) Allergic rhinitis (Chronic ~1979) Anemia (Inactive ~1979) Anemia (Resolved ~1979) Ankle pain (Inactive ~1969) Ankle pain (Resolved ~1969) Carpal tunnel syndrome (Inactive ~1996) Carpal tunnel syndrome (Resolved 1996) Cataracts, bilateral (Resolved ~2009) Chickenpox (Resolved) Chronic back pain (Inactive ~1979) Chronic back pain (Chronic ~1979) De Quervain's syndrome (tenosynovitis) (Resolved ~1989) Fibroids (Inactive ~1995) Fibroids (Resolved 1995) Foot pain (Inactive ~1979) Foot pain (Resolved ~1979) Heavy menstrual period (Resolved ~1969) History of heavy periods (Inactive ~1970) History of painful menstruation (Inactive ~1969) Measles (Resolved) Mumps (Resolved) Osteoarthritis (Inactive) Osteoarthritis (Chronic Unknown) Ovarian cyst (Inactive ~2002) Ovarian cyst (Resolved 2002) Painful menstrual periods (Resolved ~1969) Restless leg syndrome (Chronic ~2009) Rosacea (Inactive) Rosacea (Chronic Unknown) Seasonal allergies (Inactive ~1979) Sleep apnea (Inactive ~1979) Sleep apnea (Chronic ~1979) Tinnitus (Inactive ~2010) Tinnitus of both ears (Chronic ~2010) Urinary incontinence (Inactive ~1996) Urinary incontinence (Resolved 1996) Surgical History History of carpal tunnel repair History of cataract removal with insertion of prosthetic lens (~2009) Hx of partial cystectomy (Resolved 2002) Hx of thumb surgery (Resolved ~1994) Status post hysterectomy (12/2007) Status post knee surgery (12/06/13) Status post knee surgery Status post knee surgery Status post rotator cuff repair Family History Brother Age: 63 Severe obesity Hypertension High cholesterol Father Heart disease Hypertension Mother Hypertension Breast cancer Sister Age: 64 Hypertension High cholesterol Grandfather No problems noted. Grandmother No problems noted. Grandfather No problems noted. Grandmother No problems noted. Social History marital status: household members: children pets and animals: Yes education level: master's degree occupational status: employed [employer]: [employer] seatbelt use: always helmet use: Yes water heater temp set < 120 deg: Yes working smoke detector in home: Yes fire extinguisher in home: Yes carbon monox detector in home: No firearms in home: Yes do you feel safe at home: Yes Smoking Status: Never smoker alcohol intake: current substance use type: does not use during the past year weight has: decreased > 10 lbs well-balanced diet: daily or most days daily servings fruits/ve or more times/day caffeine: Yes eating out: 1-3 times/week Type(s) of exercise: walking and bicycling frequency: 1-2 times per week duration: 15-30 minutes/day Exam <CELESTE Springer - Last Filed: 05/29/19 17:05> Narrative Exam Narrative: GENERAL: This is a well-nourished, well-developed patient, no acute distress HEAD: Atraumatic. Normocephalic. No temporal or scalp tenderness. EYES: Pupils equal round and reactive. Extraocular motions intact. No scleral icterus. No injection or drainage. ENT: Nose without bleeding, purulent drainage or septal hematoma. Throat without erythema, tonsillar hypertrophy or exudate. Uvula midline. Airway patent. NECK: Trachea midline. No JVD or lymphadenopathy. Supple, nontender, no meningeal signs. CARDIOVASCULAR: Regular rate and rhythm RESPIRATORY: No cough. No increased respiratory effort. No accessory muscle use. GASTROINTESTINAL: Abdomen soft, non-tender, nondistended. No hepato- splenomegaly, or palpable masses. No guarding. EXTREMITIES: General pain to palpation right wrist. No snuffbox tenderness to palpation. Positive radial pulse. Capillary refill less than 2 seconds. 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 Using all fingers. Full range of motion noted right elbow and shoulder. BACK: Nontender without deformity or crepitance. No flank tenderness. No pain to CT or L-spine palpation. NEURO: AOx3. SKIN: Diffuse ecchymosis noted over right wrist no bleeding or laceration Initial Vital Signs Initial Vital Signs: Vital Signs Temperature 97.3 F L 05/29/19 15:15 Pulse Rate 75 05/29/19 15:15 Respiratory Rate 14 05/29/19 15:15 Blood Pressure 167/9 H 05/29/19 15:15 Pulse Oximetry 96 05/29/19 15:15 <Cassandra Milian DO - Last Filed: 05/30/19 07:19> Initial Vital Signs Initial Vital Signs: Vital Signs Temperature 97.3 F L 05/29/19 15:15 Pulse Rate 75 05/29/19 15:15 Respiratory Rate 14 05/29/19 15:15 Blood Pressure 167/9 H 05/29/19 15:15 Pulse Oximetry 96 05/29/19 15:15 Procedures <CELESTE Springer - Last Filed: 05/29/19 17:05> Orthopedic Splinting/Casting Injury #1: Side: right Upper Extremity Injury Location: wrist Upper Extremity Immobilizer: sling/shoulder immobilizer, sugar tong splint and Enio wrap Post splinting neuro exam: intact Post splinting vascular exam: intact Placed by: Nursing Course <CELESTE Springer - Last Filed: 05/29/19 17:05> Orders Ordered: Discontinued Medications Hydrocodone Bitart/Acetaminophen ([place] 5/325) 1 tab PO NOW ONE Stop: 05/29/19 16:04 Last Admin: 05/29/19 16:14 Dose: 1 tab Documented by: CSIEDLE Hydrocodone Bitart/Acetaminophen (Vicodin 5/325 Prepack) 1 bottle MISC SEEINSTR ONE Stop: 05/29/19 16:47 Last Admin: 05/29/19 16:59 Dose: Not Given Documented by: KBROTEM Vital Signs Vital signs: Vital Signs - 8 hr 05/29/19 15:15 05/29/19 16:54 05/29/19 16:59 Temperature 97.3 F L Pulse Rate 75 77 77 Respiratory Rate 14 16 Blood Pressure 167/9 H 155/85 H Blood Pressure [Left Arm] 155/85 H Pulse Oximetry 96 95 94 <Cassandra Milian DO - Last Filed: 05/30/19 07:19> Orders Ordered: Discontinued Medications Hydrocodone Bitart/Acetaminophen ([place] 5/325) 1 tab PO NOW ONE Stop: 05/29/19 16:04 Last Admin: 05/29/19 16:14 Dose: 1 tab Documented by: CSIEDLE Hydrocodone Bitart/Acetaminophen (Vicodin 5/325 Prepack) 1 bottle MISC SEEINSTR ONE Stop: 05/29/19 16:47 Last Admin: 05/29/19 16:59 Dose: Not Given Documented by: KBROTEM Vital Signs Vital signs: Vital Signs - 8 hr 05/29/19 15:15 05/29/19 16:54 05/29/19 16:59 Temperature 97.3 F L Pulse Rate 75 77 77 Respiratory Rate 14 16 Blood Pressure 167/9 H 155/85 H Blood Pressure [Left Arm] 155/85 H Pulse Oximetry 96 95 94 MDM - Extremity Injury (Upper) <CELESTE Springer - Last Filed: 05/29/19 17:05> Imaging Data Forearm x-ray: Radiologist's impression: [address] [address] XRay Report Signed Patient: Myesha Escalona [facility]#: [id number] : 1960Acct:[id number] Age/Sex: 58 / FDate of Service: 05/29/19 Loc: ED Accession Number: [id number] Procedure: XR forearm RT 2V Ordering Provider: Alta Meadows-FRANCISCO JAVIER PROCEDURE: XR FOREARM RT 2V INDICATIONS: pain sp fall TECHNIQUE: 2 views of the forearm were acquired. COMPARISON: [facility], , XR WRIST RT MIN 3V, 05/29/2019, 15:14. FINDINGS: Bones: There is impacted, intra-articular distal radius fracture. Age- appropriate bony degenerative changes are seen. No suspicious lytic or blastic lesions are seen. Soft tissues: No suspicious soft tissue calcifications or masses. IMPRESSION: Impacted, intra-articular distal radius fracture. Dictated by: Zaki Soto M.D. on 05/29/2019 at 14:38 Approved by: Zaki Soto M.D. on 05/29/2019 at 14:39 Wrist x-ray: Radiologist's impression: [place] [address] XRay Report Signed Patient: Myesha Escalona [facility]#: [id number] : 1960Acct:[id number] Age/Sex: 58 / FDate of Service: 05/29/19 Loc: ED Accession Number: [id number] Procedure: XR wrist RT min 3V Ordering Provider: Alta Meadows PROCEDURE: XR WRIST RT MIN 3V INDICATIONS: injury TECHNIQUE: 4 views of the wrist were acquired. COMPARISON: [facility], , XR FOREARM RT 2V, 05/29/2019, 15:17. FINDINGS: Bones: There is an impacted, comminuted fracture of the distal radius, with intra-articular involvement. No accompanying ulnar styloid fracture can be seen. Age-appropriate bony degenerative changes are seen. No suspicious lytic or blastic lesions are seen. Scaphoid view: No navicular fractures are seen. Soft tissues: No suspicious soft tissue calcifications. IMPRESSION: Impacted, intra-articular distal radius fracture. Dictated by: Zaki Soto M.D. on 05/29/2019 at 14:37 Approved by: Zaki Soto M.D. on 05/29/2019 at 14:38 [facility] Narrative Medical decision making narrative: The patient is a 58-year-old female who presents with a chief complaint of a FOOSH injury to her right wrist. She is neurovascularly intact throughout her stay in the emergency department. She was found to have a distal radial impacted fracture on x-ray. Films were reviewed by Dr Milian who states that she does not need reduction, and to place her in a splint for orthopedic follow-up. The patient was placed in a sugar-tong splint tolerated well. She was given [place] in the emergency department for pain. I did give her prescription thereof. We discussed at length use of rest ice compression elevation, monitoring for circulation of her fingers, use of possible stool softeners if needed given narcotic. Patient has no questions or concerns upon discharge and states understanding of return precautions as well as follow-up care. Discharge Plan Departure Patient Disposition: Home Clinical Impression: Distal radial fracture Qualifiers: Encounter type: initial encounter Fracture type: closed Fracture morphology: unspecified fracture morphology Laterality: right Qualified Code(s): S52.501A - Unspecified fracture of the lower end of right radius, initial encounter for closed fracture Discharge Date/Time: 05/29/19 17:00 Instructions: DI for Wrist Fracture, How To Perform RICE (Rest, Ice, Compress, Elevate), How to Take Care of Your Splint, DI for Distal Radius Fracture Activity Restrictions/Additional Instructions: You have a fracture at the base of the radius. Please follow-up with [facility] as well as your primary care provider. We have placed you in a splint please come back to the emergency department for any acute concerns such as decreased circulation to your fingers. I have given you a prescription of a narcotic for pain. Be aware that this can be constipating and sedating. I encouraged taking with a stool softener, pushing fluids and fiber. Do not take and drive, operate heavy machinery, etc. Do not combine it with any other sedating substances such as alcohol. The combination of narcotics and alcohol and/or other sedatives can be lethal. Please be aware that we do not provide refills of controlled substances in the emergency department. Please follow up with her primary care provider. Prescriptions: New hydrocodone-acetaminophen [[place]] 5-325 mg tablet 1 tab PO Q4-6H PRN (Reason: pain) Qty: 10 RF: 0 No Action oxybutynin chloride 5 mg tablet 5 mg PO BID Qty: 180 RF: 3 VITAMIN D (Vitamin D3) 1,000 unit PO QDAY Qty: 0 RF: 0 [IRON ] 45 mg PO QDAY Qty: 0 RF: 0 ascorbic acid (vitamin C) 500 MG tablet 500 mg PO QDAY Qty: 0 RF: 0 CA PANTOTHENATE/FOLIC ACID/VIT (MULTIVITAMIN) 1 tab PO Q DAY Qty: 0 RF: 0 calcium carbonate-vitamin D3 [Calcium 600 with Vitamin D3] 600 MG/200 IU capsule 1 PO BID Qty: 0 RF: 0 etodolac 400 mg tablet 400 mg PO BID Qty: 180 RF: 3 (DME) Respironics Dreamstation CPAP Qty: 1 RF: 0 sertraline 100 mg tablet 100 mg PO DAILY RF: 0 Referrals: [facility] [Provider Group] Chaitanya Andrews MD [Primary Care Provider] -
[2019-05-29] MEDS: HYDROCODONE/ACET 5/325 TABLET 1 TAB PO (16:14)
[2019-05-29 16:54] VITALS: BP 155/85; PULSE 77; RESP 16; O2SAT 95
[2019-05-29 16:59] VITALS: BP 155/85; PULSE 77; O2SAT 94
== END 2019-05-29 17:00 | disposition home or self-care (01) ==
PROVIDERS: Emergency Provider Nurse Practitioner Family; PCP Family Medicine
DX: S52.501A Unspecified fracture of the lower end of right radius, initial encounter for closed fracture (principal); M79.631 Pain in right forearm; W01.0XXA Fall on same level from slipping, tripping and stumbling without subsequent striking against object, initial encounter
CPT/HCPCS: 29125; 73090; 73110; 99283

== ENCOUNTER → 2019-06-02 10:48 | Outpatient (CLI) | payer BC, SELFPAY ==
--- NOTE | 2019-06-02 | DI.CT.S_ITS ---
PROCEDURE: CT UE RT WO CON INDICATIONS: RIGHT WRIST FRACTURE TECHNIQUE: Noncontrast 1 mm axial sections acquired through the carpal bones, with coronal and sagittal reformats. COMPARISON: [facility], CR, XR WRIST RT MIN 3V, 05/29/2019, 15:14. FINDINGS: Image quality: Excellent. Bones: Markedly comminuted distal radius fracture extending to the articular surface in near overall anatomic alignment. No other fractures or dislocations. Soft tissues: Associated soft tissue swelling IMPRESSION: Markedly comminuted distal radius fracture extending to articular surface in near overall anatomic alignment. Dictated by: Silver Cruz M.D. on 06/02/2019 at 11:47 Approved by: Silver Cruz M.D. on 06/02/2019 at 11:49
== END ==
PROVIDERS: PCP Family Medicine; Visit Provider Orthopaedic Surgery
DX: S52.501A Unspecified fracture of the lower end of right radius, initial encounter for closed fracture (principal); X58.XXXA Exposure to other specified factors, initial encounter
CPT/HCPCS: 73200

== ENCOUNTER → 2020-06-29 12:25 | Outpatient (CLI) | payer BC, SELFPAY ==
--- NOTE | 2020-06-29 | DI.MG.S_ITS ---
BILATERAL DIGITAL SCREENING MAMMOGRAM 3D/2D WITH CAD: 06/29/2020 CLINICAL: Routine screening. Family history of breast cancer. Comparison is made to exams dated: 10/23/2018 mammogram, 09/19/2017 mammogram, and 09/20/2016 mammogram - [facility]. There are scattered fibroglandular elements in both breasts. Current study was also evaluated with a Computer Aided Detection (CAD) system. No significant masses, calcifications, or other findings are seen in either breast. There has been no significant interval change. IMPRESSION: NEGATIVE There is no mammographic evidence of malignancy. A 1 year screening mammogram is recommended. This exam was interpreted at Station ID: [id number]. NOTE: For mammograms, a report in lay terms will be sent to the patient. Approximately 15% of breast malignancies will not be visualized mammographically. In the management of a palpable breast mass, a negative mammogram must not discourage biopsy of a clinically suspicious lesion. Electronically Signed By: Arie welsh/verna:06/29/2020 13:52:31 copy to: Gabby Garcia letter sent: Normal Exam ACR BI-RADS Category 1: Negative [id number]
== END ==
PROVIDERS: Referring Provider Student in an Organized Health Care Education/Training Program; Visit Provider Student in an Organized Health Care Education/Training Program
DX: Z12.31 Encounter for screening mammogram for malignant neoplasm of breast (principal); Z80.3 Family history of malignant neoplasm of breast
CPT/HCPCS: 77063; 77067

== ENCOUNTER → 2021-03-09 09:15 | Outpatient (CLI) | payer BC, SELFPAY ==
--- NOTE | 2021-03-09 | DI.NM.S_ITS ---
PROCEDURE: NM BONE SCAN WHOLE BODY RADIOPHARMACEUTICAL: 20.2 mCi Tc-99m MDP IV. INDICATIONS: Abnormal levels of other serum enzymes TECHNIQUE: Delayed whole-body scintigrams were obtained approximately 3-4 hours after intravenous injection of radiotracer. Anterior and posterior views were acquired from vertex to feet. Additional left and right oblique views of the thoracic cage were obtained. COMPARISON: MR, KNEE WITHOUT CONTRAST, 11/10/2013, 18:31. Outside Facility, RG, XR L-SPINE 2-3V, 07/22/2018, 10:52. FINDINGS: There are 2 foci of increased uptake involving the anterior aspect of the right 6th and 7th ribs, most likely secondary to rib fractures. No lesions are identified in skull, sternum, clavicles, scapulae, ribs, bony pelvis, and visualized shafts of the long bones. There is low level increased uptake in thoracic and lumbar spine with distribution indistinguishable from degenerative disc and facet disease; early metastasis to spine could be obscured by degenerative changes. There are foci of increased periarticular activity involving shoulders, sternoclavicular joints, left elbow, hips, SI joints, knees, ankles and feet, compatible with degenerative/arthritic changes. IMPRESSION: 1. Foci of increased uptake in the anterior aspect of the right 6th and 7th ribs are noted, most likely related to rib fractures. Recommend radiographic correlation. 2. Increased uptake in the thoracic and lumbar spine may be degenerative in nature. Radiographic correlation is recommended. 3. Degenerative/arthritic changes in multiple peripheral joints. Dictated by: Sumit Bansal M.D. on 03/09/2021 at 14:24 Approved by: Sumit Bansal M.D. on 03/09/2021 at 14:27
== END ==
PROVIDERS: PCP Student in an Organized Health Care Education/Training Program; Referring Provider Student in an Organized Health Care Education/Training Program; Visit Provider Student in an Organized Health Care Education/Training Program
DX: R74.8 Abnormal levels of other serum enzymes (principal)
CPT/HCPCS: 78306; A9503

== ENCOUNTER → 2021-09-14 11:21 | Outpatient (CLI) | payer OTHER, MEDICAID, SELFPAY ==
--- NOTE | 2021-09-14 | DI.MG.S_ITS ---
BILATERAL DIGITAL SCREENING MAMMOGRAM 3D/2D WITH CAD: 09/14/2021 CLINICAL: Routine screening. Family history of breast cancer. Comparison is made to exams dated: 10/23/2018 mammogram, 09/19/2017 mammogram, and 09/20/2016 mammogram - [facility]. There are scattered fibroglandular elements in both breasts. Current study was also evaluated with a Computer Aided Detection (CAD) system. There are mole markers on the left breast. No significant masses, calcifications, or other findings are seen in either breast. There has been no significant interval change. IMPRESSION: NEGATIVE There is no mammographic evidence of malignancy. A 1 year screening mammogram is recommended. This exam was interpreted at Station ID: [id number]. NOTE: For mammograms, a report in lay terms will be sent to the patient. Approximately 15% of breast malignancies will not be visualized mammographically. In the management of a palpable breast mass, a negative mammogram must not discourage biopsy of a clinically suspicious lesion. Electronically Signed By: Piotr Diop acr/verna:09/14/2021 12:06:34 copy to: Gabby Garcia letter sent: Normal Exam ACR BI-RADS Category 1: Negative [id number]
== END ==
PROVIDERS: PCP Student in an Organized Health Care Education/Training Program; Referring Provider Student in an Organized Health Care Education/Training Program; Visit Provider Student in an Organized Health Care Education/Training Program
DX: Z12.31 Encounter for screening mammogram for malignant neoplasm of breast (principal)
CPT/HCPCS: 77063; 77067

== ENCOUNTER → 2021-11-02 11:17 | Outpatient (CLI) | payer OTHER, MEDICAID, SELFPAY ==
--- NOTE | 2021-11-02 11:18 | DI.MRI.S_ITS ---
PROCEDURE: MR KNEE RT WO CON INDICATIONS: Pain in right knee TECHNIQUE: Noncontrast sagittal PD fast spin echo and T2 fast spin echo with fat saturation, sagittal 3-D FLASH with fat saturation; coronal T1 spin echo and PD fast spin echo with fat saturation, and axial PD fast spin echo with fat saturation through the knee. COMPARISON: [facility], CR, KNEE 1-2 VIEWS RIGHT, 10/24/2015, 11:21. [facility], MR, KNEE WITHOUT CONTRAST, 11/10/2013, 18:31. FINDINGS: Image quality: Excellent. Menisci: Deficiency of the medial meniscus with extrusion, compatible with tear, most probably involving the posterior horn. Non surfacing signal in the lateral meniscus, compatible with degeneration. Cruciate ligaments: The anterior and posterior cruciate ligaments appear intact. Medial structures: The medial collateral ligament appears intact. Periligamentous edema, compatible grade 1/2 injury. Visualized portions of the pes anserinus tendons appear normal. No abnormal bursal fluid. Lateral structures: The lateral collateral ligament, long and short heads of the biceps femoris tendon appear intact. The popliteus tendon appears normal. A 1.4 x 1.4 cm T2 hyperintense lesion with T2 hyperintense/T1 hyperintense adjacent to the musculotendinous junction, which may reflect an intra-articular body. Iliotibial band appears normal. Anterior structures: The quadriceps and patellar tendons appear intact. Patellar alignment is normal. No femoral trochlear dysplasia or ventral trochlear prominence. No edema in the infrapatellar fat pad. Bones and cartilage: No evidence of fracture. Subchondral T2 hyperintense/T1 hypointense signal of the medial compartment articular surfaces with contour irregularity and deficiency of the hyaline cartilage compatible. Tricompartment osteophytosis signal heterogeneity and thinning of the lateral and patellofemoral compartment hyaline cartilage. Joint space: Moderate knee joint fluid. No substantial Payne's cyst. IMPRESSION: 1. Medial meniscal tear as detailed above. 2. Moderate knee joint effusion. 3. Cystic-appearing lesion adjacent to the popliteal musculotendinous junction, which may reflect joint fluid with intra-articular body. 4. Advanced degenerative change of the medial compartment as detailed above. 5. Grade 1/2 MCL injury. Dictated by: Mark Mcdonald M.D. on 11/02/2021 at 14:37 Approved by: Mark Mcdonald M.D. on 11/02/2021 at 14:50
== END ==
PROVIDERS: PCP Student in an Organized Health Care Education/Training Program; Referring Provider Family Medicine; Visit Provider Family Medicine
DX: S83.241A Other tear of medial meniscus, current injury, right knee, initial encounter (principal); M25.461 Effusion, right knee; M25.561 Pain in right knee; Z87.828 Personal history of other (healed) physical injury and trauma
CPT/HCPCS: 73721

== ENCOUNTER → 2021-12-20 11:43 | Outpatient (CLI) | payer OTHER, MEDICAID, SELFPAY | PROVIDERS: PCP Student in an Organized Health Care Education/Training Program; Referring Provider Student in an Organized Health Care Education/Training Program; Visit Provider Student in an Organized Health Care Education/Training Program | DX: Z78.0 Asymptomatic menopausal state (principal); M85.852 Other specified disorders of bone density and structure, left thigh; M85.851 Other specified disorders of bone density and structure, right thigh | CPT/HCPCS: 77080 ==

== ENCOUNTER → 2022-02-10 12:14 | Outpatient (CLI) | payer OTHER, MEDICAID, SELFPAY ==
[2022-02-10 12:56] LABS: Alanine Aminotransferase 26 IU/L (<35); Albumin 4.4 g/dL (3.5-5.0); Albumin Globulin Ratio 1.5 (1.0-2.8); Alkaline Phosphatase 105 U/L (38-126); Aspartate Aminotransferase 25 IU/L (14-36); BUN Creatinine Ratio 22.8 (6-22); Bilirubin Total 0.4 mg/dL (0.2-1.3); Blood Urea Nitrogen 18 mg/dL (7-17); Calcium 9.5 mg/dL (8.4-10.2); Carbon Dioxide 29 mmol/L (22-32); Chloride 101 mmol/L (98-107); Estimated Glomerular Filt Rate > 60 mL/min (>60); Glucose 98 mg/dL (80-110); HEMOLYSIS < 15 (0-50); Potassium 3.9 mmol/L (3.4-5.1); Sodium 139 mmol/L (137-145); Total Protein 7.4 g/dL (6.3-8.2)
[2022-02-10 13:07] LABS: LDL Cholesterol Direct 89 mg/dL (<100)
[2022-02-10 13:27] LABS: Thyroid Stimulating Hormone 4.38 uIU/mL (0.47-4.68)
[2022-02-10 14:10] LABS: Add Manual Diff / Slide Review NO; Basophils Absolute Auto 0 /uL (0-100); Basophils Percent Auto 0.2 % (0-2); Eosinophils Absolute Auto 300 /uL (0-450); Eosinophils Percent Auto 3.4 % (2-4); Hematocrit 40.4 % (36-46); Hemoglobin 13.5 g/dL (12.0-16.0); Lymphocytes Absolute Auto 1200 /uL (1100-4500); Lymphocytes Percent Auto 13.9 % (25-40); Mean Corpuscular HGB Conc 33.3 % (30-36); Mean Corpuscular Hemoglobin 26.2 PG (26-34); Mean Corpuscular Volume 78.5 fL (80-100); Monocytes Absolute Auto 400 /uL (0-900); Monocytes Percent Auto 4.3 % (3-14); Neutrophils Absolute Auto 6600 /uL (1500-7000); Neutrophils Percent Auto 78.2 % (50-75); Platelet Count 250 X10^3/uL (150-400); Red Blood Cell Count 5.14 X10^6/uL (4.0-5.2); Red Cell Distribution Width 15.6 % (11.6-14.8); White Blood Cell Count 8.4 X10^3/uL (4.5-11.0)
[2022-02-10 14:22] LABS: Hemoglobin A1C% w Est Avg Glu 5.9 % (4.0-6.0)
[2022-02-14 18:13] LABS: Vitamin D 25 Hydroxy (D3) 50.8 ng/mL (30.0-100.0)
== END ==
PROVIDERS: PCP Student in an Organized Health Care Education/Training Program; Referring Provider Student in an Organized Health Care Education/Training Program; Visit Provider Student in an Organized Health Care Education/Training Program
DX: Z00.00 Encounter for general adult medical examination without abnormal findings (principal); E55.9 Vitamin D deficiency, unspecified; E78.00 Pure hypercholesterolemia, unspecified; R73.09 Other abnormal glucose; R74.8 Abnormal levels of other serum enzymes
CPT/HCPCS: 36415; 80053; 82306; 83036; 83721; 84443; 85025

== ENCOUNTER → 2022-02-14 15:07 | Outpatient (CLI) | payer OTHER, MEDICAID, SELFPAY ==
[2022-02-14 16:41] LABS: COVID19 -Nasal RAPID Negative (Negative)
== END ==
PROVIDERS: PCP Student in an Organized Health Care Education/Training Program; Visit Provider Surgery
DX: Z01.812 Encounter for preprocedural laboratory examination (principal); Z20.822 Contact with and (suspected) exposure to COVID-19
CPT/HCPCS: 87635; C9803

== ENCOUNTER 2022-02-15 07:42 | Day surgery (SDC) | payer OTHER, MEDICAID, SELFPAY ==
[2022-02-15] MEDS: SODIUM CHLORIDE 0.9% 1,000 ML 100 ML IV (08:22)
[2022-02-15 08:23] VITALS: BP 148/74; PULSE 95; RESP 18; TEMP 36.3; O2SAT 95; BMI 49.2
--- NOTE | 2022-02-15 08:41 | PM.HP.1 ---
History of Present Illness History of Present Illness Date Patient Seen: 02/15/22 Time Patient Seen: 08:41 Chief complaint: Colonoscopy Narrative: Second colonoscopy for screening, no issues last time. No family history for colon cancer or current symptoms. 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 Osteoarthritis (Unknown) Ovarian cyst (2002) Restless leg syndrome (~2009) Rosacea (Unknown) Seasonal allergies (~1979) Tinnitus of both ears (~2010) Urinary incontinence (1996) Surgical History History of carpal tunnel repair History of cataract removal with insertion of prosthetic lens (~2009) Hx of partial cystectomy (2002) Hx of thumb surgery (~1994) Status post hysterectomy (12/2007) Status post knee surgery (12/06/13) Status post knee surgery Status post rotator cuff repair Family & Social History Family History Brother Age: 66 Severe obesity Hypertension High cholesterol Father Heart disease Hypertension Mother Hypertension Breast cancer Sister Age: 67 Hypertension High cholesterol Grandfather No problems noted. Grandmother No problems noted. Grandfather No problems noted. Grandmother No problems noted. Social History: household members children Tobacco & Substance use: Smoking Status Never smoker alcohol intake current alcohol intake frequency holiday/special occasion Substance Use Type does not use Meds Home Medications and Allergies Home Medications Medication Instructions Recorded Confirmed Type CA PANTOTHENATE/FOLIC ACID/VIT 1 tab PO Q DAY ##0 11/26/11 02/15/22 History (MULTIVITAMIN) ascorbic acid (vitamin C) 500 mg 500 mg PO QDAY ##0 11/26/11 02/15/22 History tablet calcium carbonate 600 mg-vitamin 1 PO BID ##0 12/13/11 12/05/21 History D3 10 mcg (400 unit) capsule (Calcium 600 with Vitamin D3) sertraline 100 mg tablet 100 mg PO DAILY 12/25/18 02/15/22 History atorvastatin 10 mg tablet 10 mg PO DAILY 07/28/19 02/15/22 History Oral Appliance for Moderate KALI #1 ea 01/02/21 12/05/21 Rx ResMed Air Sense 10 05/29/21 12/05/21 History VITAMIN D (Vitamin D3) 2,000 unit PO QDAY ##0 05/29/21 12/05/21 History ibuprofen 600 mg tablet 600 mg PO DAILY 05/29/21 02/15/22 History omeprazole 20 mg PO DAILY PRN Acid Reflux 05/29/21 02/15/22 History oxybutynin chloride 5 mg tablet See Rx Instructions .Route 02/07/22 02/15/22 Rx .COMPLEX #60 tabs Allergies Allergy/AdvReac Type Severity Reaction Status Date / Time prochlorperazine Allergy Severe Anaphylaxis Verified 02/15/22 08:12 [PROCHLORPERAZINE] adhesive tape [ADHESIVE TAPE] Allergy Intermediate BLISTERS---PAPER Verified 02/15/22 08:12 TAPE IS OK cefotetan [CEFOTETAN] Allergy Intermediate RASH Verified 02/15/22 08:12 Review of Systems Review of Systems ROS: Yes All systems reviewed with the patient and are negative except as otherwise documented Exam Vital Signs (past 8 hours): - 02/15/22 08:23 Temperature 97.4 F L Pulse Rate 95 H Respiratory Rate 18 Blood Pressure 148/74 H Pulse Oximetry 95 Oxygen Delivery Method Room Air Oxygen Delivery Method Room Air Const General: cooperative and comfortable Nutritional Appearance: well nourished [facility] Head: normal to inspection, normocephalic and atraumatic Ears: hearing grossly normal bilaterally Eyes General: appearance normal, both eyes and all related structures Neck Neck: trachea midline Resp Effort & Inspection: normal respiratory effort and able to speak in complete sentences Cardio Rate: regular rate Rhythm: regular rhythm GI Palpation: soft Skin General: no rashes or lesions noted Neuro General: patient alert, patient awake and patient oriented x3 Extrem General: full ROM Psych Appearance: grossly normal Judgment: judgment good Assessment & Plan Assessment & Plan narrative: Colon cancer screening with colonoscopy and moderate sedation COVID-19 COVID-19 status: Negative Time Spent With Patient Critical Care time: I spent a total of [] minutes of critical care time on this patient's care today; this time is exclusive of procedural time.
--- NOTE | 2022-02-15 08:48 | PM.OP.COLON ---
Operative Date/Time/Diagnoses Date of procedure: 02/15/22 Time of procedure: 08:48 Pre-op diagnosis: colon cancer screening Post-op diagnosis: same Procedure & Clinicians Study performed: colonoscopy with moderate sedation Same procedure as scheduled: Yes Indications: colon cancer screening Surgeon: Nina Becerril Procedure Notes Procedure in detail: pre op: colon cancer screening Post op dx: same Procedure: colonoscopy with moderate sedation. Surgeon: Lesly Becerril MD Anesthetic: 50 mcg fentanyl 6 mg Versed Findings: Normal colonoscopy. No diverticulosis. No polyps. Procedure: Patient placed in lateral position. Rectal exam performed showing normal tone no masses. Colonoscope inserted into the rectum and advanced to ileocecal valve with minimal difficulty. Insufflation extraction the scope and the above findings. Retroflex was included in the rectum. Impression: No polyps, no diverticulosis. Normal colon. Plan: Repeat colonoscopy in 10 years Sedation minutes: 24 Specimen(s): none sent Complications: none Impression: normal Post-procedure Recommendations: Colonoscopy in 10 years Follow up: as needed Disposition: PACU
[2022-02-15] MEDS: MIDAZOLAM 5 MG/5 ML VIAL 6 MG IV (09:02)
[2022-02-15] MEDS: fentaNYL 100 MCG/2 ML INJ 150 MCG IV (09:02)
[2022-02-15 09:21] VITALS: BP 111/57; PULSE 74; RESP 16; TEMP 36.1; O2SAT 94
[2022-02-15 09:26] VITALS: BP 110/63; PULSE 78; RESP 12; TEMP 36.1; O2SAT 93
[2022-02-15 09:31] VITALS: BP 97/73; PULSE 89; RESP 17; TEMP 36.3; O2SAT 93
[2022-02-15 09:34] VITALS: BP 130/59; PULSE 76; RESP 18; TEMP 36.8; O2SAT 94
== END 2022-02-15 09:58 | disposition home or self-care (01) ==
PROVIDERS: PCP Family Medicine; Referring Provider Surgery; Visit Provider Surgery
PROC: 0DJD8ZZ Inspection of Lower Intestinal Tract, Via Natural or Artificial Opening Endoscopic (ICD-10-PCS; CPT 45378; principal; 2022-02-15 09:15)
DX: Z12.11 Encounter for screening for malignant neoplasm of colon (principal)
CPT/HCPCS: 45378; 99152; 99153; J2250; J3010

== ENCOUNTER 2022-06-05 16:59 | Emergency (ER) | payer OTHER, MEDICAID, SELFPAY ==
[2022-06-05 17:02] VITALS: BP 199/95; PULSE 76; RESP 16; TEMP 37; O2SAT 95; BMI 44.9
== END 2022-06-05 18:50 | disposition left against medical advice (07) ==
PROVIDERS: Emergency Provider Emergency Medicine; PCP Family Medicine
CPT/HCPCS: 99281

== ENCOUNTER → 2022-10-03 11:15 | Outpatient (CLI) | payer OTHER, MEDICAID, SELFPAY ==
--- NOTE | 2022-10-03 | DI.MG.S_ITS ---
BILATERAL DIGITAL SCREENING MAMMOGRAM 3D/2D WITH CAD: 10/03/2022 CLINICAL: Routine screening. Family history of breast cancer. Comparison is made to exams dated: 09/14/2021 mammogram, 06/29/2020 mammogram, and 10/23/2018 mammogram - [facility]. There are scattered areas of fibroglandular density in both breasts (category b / 25%-50% glandular tissue). Current study was also evaluated with a Computer Aided Detection (CAD) system. There are mole markers on the left breast. No significant masses, calcifications, or other findings are seen in either breast. There has been no significant interval change. IMPRESSION: NEGATIVE There is no mammographic evidence of malignancy. A 1 year screening mammogram is recommended. Based on the Tyrer Cuzick model (a risk assessment model) the patient's lifetime risk is 16.6% and her 10 year risk is 7.4%. According to the ACR, ACS, and NCCN guidelines, an annual breast MRI exam along with mammogram is recommended if the patient's lifetime risk is 20% or greater. This exam was interpreted at Station ID: [id number]. NOTE: For mammograms, a report in lay terms will be sent to the patient. Approximately 15% of breast malignancies will not be visualized mammographically. In the management of a palpable breast mass, a negative mammogram must not discourage biopsy of a clinically suspicious lesion. Electronically Signed By: Piotr de souza/verna:10/03/2022 15:52:36 copy to: Gabby Garcia letter sent: Normal Exam ACR BI-RADS Category 1: Negative [id number]
== END ==
PROVIDERS: PCP Family Medicine; Referring Provider Family Medicine; Visit Provider Family Medicine
DX: Z12.31 Encounter for screening mammogram for malignant neoplasm of breast (principal); Z80.3 Family history of malignant neoplasm of breast
CPT/HCPCS: 77063; 77067

== ENCOUNTER → 2023-10-10 11:40 | Outpatient (CLI) | payer OTHER, MEDICAID, SELFPAY ==
--- NOTE | 2023-10-10 | DI.MG.S_ITS ---
BILATERAL DIGITAL SCREENING MAMMOGRAM 3D/2D WITH CAD: 10/10/2023 CLINICAL: Routine screening. Family history of breast cancer. Comparison is made to exams dated: 10/03/2022 mammogram, 09/14/2021 mammogram, 06/29/2020 mammogram, and 10/23/2018 mammogram - [facility]. There are scattered areas of fibroglandular density in both breasts (category b / 25%-50% glandular tissue). Current study was also evaluated with a Computer Aided Detection (CAD) system. There are mole markers on the left breast. No significant masses, calcifications, or other findings are seen in either breast. There has been no significant interval change. IMPRESSION: NEGATIVE There is no mammographic evidence of malignancy. A 1 year screening mammogram is recommended. Based on the Tyrer Cuzick model (a risk assessment model) the patient's lifetime risk is 16.2% and her 10 year risk is 7.4%. According to the ACR, ACS, and NCCN guidelines, an annual breast MRI exam along with mammogram is recommended if the patient's lifetime risk is 20% or greater. This exam was interpreted at Station ID: [id number]. NOTE: For mammograms, a report in lay terms will be sent to the patient. Approximately 15% of breast malignancies will not be visualized mammographically. In the management of a palpable breast mass, a negative mammogram must not discourage biopsy of a clinically suspicious lesion. Electronically Signed By: Richard ferrara/verna:10/10/2023 16:39:29 copy to: Gabby Garcia letter sent: Normal Exam ACR BI-RADS Category 1: Negative [id number]
== END ==
LOC: MAMMO 11:41
PROVIDERS: PCP Internal Medicine; Referring Provider Internal Medicine; Visit Provider Internal Medicine
DX: Z12.31 Encounter for screening mammogram for malignant neoplasm of breast (principal); Z80.3 Family history of malignant neoplasm of breast; R92.323 Mammographic fibroglandular density, bilateral breasts
CPT/HCPCS: 77063; 77067

== ENCOUNTER → 2024-07-23 10:45 | Outpatient (CLI) | payer OTHER, MEDICAID, SELFPAY ==
--- NOTE | 2024-07-23 10:47 | DI.RAD.S_ITS ---
PROCEDURE: XR DEXA AXIAL SKELETON INDICATIONS: ASYMPTOMATIC MENOPAUSAL STATE COMPARISON: [facility], CR, XR DEXA AXIAL SKELETON, 12/20/2021, 12:07. FINDINGS: Lumbar Spine: Bone mineral density 1.082 g/cm2, T score 0.3, previously -0.1. Left Femoral Neck: Bone mineral density 0.702 g/cm2, T score -1.3, previously -1.4. Left Hip: Bone mineral density 1.015 g/cm2, T score 0.6, previously 0.5. Fracture Risk Calculation (when applicable): 10-year fracture risk of a major osteoporotic fracture 12 percent and of a hip fracture 0.9 percent. (T score greater or equal to -1.0 to: NORMAL) (T score from -1.1 to -2.4: OSTEOPENIA) (T score less than or equal to -2.5: OSTEOPOROSIS) IMPRESSION: 1. Normal bone density of the lumbar spine. 2. Osteopenia of the left femoral neck. 3. Normal bone density of the left hip. Follow-up guidelines as follows: Osteoporosis: Consider a repeat DEXA and Vertebral Fracture Assessment (VFA) exam in 2 years or sooner if medically necessary, to reassess this patient's status. Osteopenia: Consider a repeat DEXA in 2-3 years to reassess this patient's status, or if there is a new clinical indication. Normal: Consider a repeat DEXA in 5 years or sooner, or if there is a new clinical indication. All treatment decisions require clinical judgment and consideration of individual patient factors, including patient preferences, comorbidities, previous drug use, risk factors not captured in the FRAX model (e.g., frailty, falls, vitamin D deficiency, increased bone turnover, interval significant decline in bone density ) and possible under- or over-estimation of fracture risk by FRAX. In addition, the NOF Guide recommends that FDA-approved medical therapies be considered in postmenopausal women and men age >= 50 years with a: * Hip or vertebral (clinical or morphometric) fracture * T-score of <=-2.5 at the spine or hip * Ten-year fracture probability by FRAX of >= 3% for hip fracture or >=20% for major osteoporotic fracture. Dictated by: Andres Gaston M.D. on 07/25/2024 at 16:12 Approved by: Andres Gaston M.D. on 07/25/2024 at 16:13
== END ==
PROVIDERS: PCP Family Medicine; Referring Provider Family Medicine; Visit Provider Family Medicine
DX: M85.89 Other specified disorders of bone density and structure, multiple sites (principal); Z78.0 Asymptomatic menopausal state
CPT/HCPCS: 77080

== ENCOUNTER → 2024-12-01 10:53 | Outpatient (CLI) | payer MEDICARE, SELFPAY | PROVIDERS: PCP Family Medicine; Visit Provider Nurse Practitioner Family | DX: R30.0 Dysuria (principal) | CPT/HCPCS: 87086 ==

== ENCOUNTER → 2024-12-01 11:31 | Outpatient (CLI) | payer MEDICARE, SELFPAY ==
--- NOTE | 2024-12-01 11:32 | DI.RAD.S_ITS ---
PROCEDURE: XR HIP W PEL IF DONE LT 2V INDICATIONS: Left hip pain TECHNIQUE: AP pelvis with lateral view(s) of the left hip(s). COMPARISON: [facility], , XR HIP W PEL IF DONE LT 2V, 09/30/2018, 12:02. FINDINGS: Bones: No fractures or dislocations. Mild bilateral hip joint degeneration. Pelvic ring appears intact. No suspicious bony lesions. Soft tissues: The visualized bowel gas pattern is normal. No suspicious soft tissue calcifications. IMPRESSION: No acute bony abnormality. Mild bilateral hip joint degeneration. Dictated by: Robinson Joiner M.D. on 12/01/2024 at 11:54 Approved by: Robinson Joiner M.D. on 12/01/2024 at 11:54
== END ==
PROVIDERS: PCP Family Medicine; Referring Provider Nurse Practitioner Family; Visit Provider Nurse Practitioner Family
DX: M16.0 Bilateral primary osteoarthritis of hip (principal); M25.552 Pain in left hip
CPT/HCPCS: 73502

== ENCOUNTER → 2024-12-20 16:39 | Outpatient (CLI) | payer MEDICARE, SELFPAY ==
--- NOTE | 2024-12-20 16:41 | DI.MG.S_ITS ---
MM screening mammo BI: 12/20/2024. BI-RADS: 0 CLINICAL: 64-year old female for bilateral screening mammogram. Tyrer-Cuzick lifetime risk of 18.6%. Current reported family history of breast cancer: mother. PRIOR EXAMS 10/10/2023, 10/03/2022, 09/14/2021, 06/29/2020, 10/23/2018, 09/19/2017, 09/20/2016, 09/15/2015. MAMMOGRAPHY TECHNIQUE: 2D and 3D (tomosynthesis) digital mammographic views obtained, with additional images as needed for full coverage. Current study was also evaluated with a Computer Aided Detection (CAD) system. DENSITY B. There are scattered areas of fibroglandular density. MAMMOGRAPHY FINDINGS Right: No suspicious mass, asymmetry, microcalcification, or other abnormality seen. Left: Upper Outer Quadrant, Posterior depth: Calcifications needing additional imaging evaluation. IMPRESSION: Right * No evidence of malignancy. Left (Calcification): Upper Outer Quadrant, Posterior depth * Incomplete - calcification needing additional imaging evaluation. RECOMMENDATIONS Left: Upper Outer Quadrant, Posterior depth * Further evaluation with diagnostic mammography. OVERALL ASSESSMENT CATEGORY BI-RADS-0: Incomplete - Need Additional Imaging Evaluation. ELECTRONICALLY SIGNED: Alexey Valenzuela M.D. on 12/21/2024 at 10:07:10 AM PT Interpreting Station ID: [id number]
== END ==
LOC: MAMMO 16:40
PROVIDERS: Family Provider Family Medicine; PCP Family Medicine; Referring Provider Family Medicine; Visit Provider Family Medicine
DX: Z12.31 Encounter for screening mammogram for malignant neoplasm of breast (principal); Z80.3 Family history of malignant neoplasm of breast
CPT/HCPCS: 77063; 77067

== ENCOUNTER 2024-12-23 13:39 | Outpatient (RCR) | payer MEDICARE, SELFPAY ==
--- NOTE | 2024-12-23 17:00 | PT.OIE ---
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 Osteoarthritis (Unknown) Ovarian cyst (2002) Restless leg syndrome (~2009) Rosacea (Unknown) Seasonal allergies (~1979) Tinnitus of both ears (~2010) Urinary incontinence (1996) Past Surgical History (Last Reviewed 06/20/22 @ 10:59 by Jonathan Gracia MD) History of carpal tunnel repair History of cataract removal with insertion of prosthetic lens (~2009) Hx of partial cystectomy (2002) Hx of thumb surgery (~1994) Status post hysterectomy (12/2007) Status post knee surgery (12/06/13) Status post knee surgery Status post rotator cuff repair Visit Care Team Role Provider Type Jennifer Maguire DO Family Provider Physician Primary Care Provider Specialty: Family Practice Address: [address] [place] [address], [address], [facility] Email: [email or web address] Carrillo PA-C Attending Provider Advanced Oncology Social Work Referring Provider Specialty: Medical Wound Care Address: [address] [place] [address], [id number] Email: [email or web address] Physical Therapy Initial Evaluation PT-OP-A Visit Information Start: 12/23/24 13:46 Freq: Status: Active Protocol: Document 12/23/24 13:47 SAP BPC ARCHITECT (Rec: 12/23/24 14:35 SAP BPC ARCHITECT Laptop) Out-Patient Physical Therapy Visit Information Visit Information Visit Type Initial Evaluation Visit Start Time 13:47 Visit Stop Time 14:35 Visit Number 1 Number of CORPORATE TRAVEL EXPERT Visits 0 Evaluation Information Evaluation Date 12/23/24 PT-OP-B Current Condition Start: 12/23/24 13:46 Freq: Status: Active Protocol: Document 12/23/24 13:47 SAP BPC ARCHITECT (Rec: 12/23/24 14:35 SAP BPC ARCHITECT Laptop) Current Condition History of Current Condition Onset Date ~1 month ago Current Complaints L lateral hip and leg pain History of Current Pt reports L side of body has issues typically, in Condition early November began having a pain to L groin that felt like a muscle spasm, it has gradually moved more laterally to side of leg which is now numb. PCP put her on strong ibuprofen and muscle relaxors. Had to sleep in a chair for a few nights at first and had difficulty standing up straight. Since taking the medications pain has progressively gotten better and is no longer taking muscle relaxors consistently and takes ibuprofen daily. States her doctor thinks this pain came from her low back, which she has a history of pain and PT for L low back pain. Currently has muscle spasms from L leg under butt cheek down to mid calf, set off when walking often or lifting anything from low surface. Walking and standing long periods of time exacerbate L hip pain and sitting down or bending over relieves it. Treatment Goals Patient/Caregiver To stop the pain and to relax the low back muscles if Goals that is where pain is coming from PT-OP-C Subjective Start: 12/23/24 13:46 Freq: Status: Active Protocol: Document 12/23/24 13:47 SAP BPC ARCHITECT (Rec: 01/02/25 13:57 SAP BPC ARCHITECT Laptop) Patient Questionnaires Lower Extremity Functional Scale LEFS Score 30/80 LEFS Impairment 40 to 59% Impaired (Score 32-47) PT-OP-D Balance Start: 12/23/24 13:46 Freq: Status: Active Protocol: Document 12/23/24 13:47 SAP BPC ARCHITECT (Rec: 12/23/24 14:35 SAP BPC ARCHITECT Laptop) Balance Tests Single Limb Standing Single Limb- Right 12s with BUEs out to side and significant med/lat instability of foot Single Limb- Left 5s with BUEs out to side and significant med/lat instability of foot PT-OP-H Neuro Start: 12/23/24 13:46 Freq: Status: Active Protocol: Document 12/23/24 13:47 SAP BPC ARCHITECT (Rec: 12/23/24 14:35 SAP BPC ARCHITECT Laptop) Sensation Evaluation Comments Summary Comments N/T to L lateral leg from hip to just above lateral knee PT-OP-K Range of Motion Start: 12/23/24 13:46 Freq: Status: Active Protocol: Document 12/23/24 13:47 SAP BPC ARCHITECT (Rec: 12/23/24 14:35 SAP BPC ARCHITECT Laptop) Hip Goniometric Range of Motion Hip ROM Limitations Hip ROM Limitations Soft Tissue Tightness Comments Heel to butt: R 10, L 12 IR: R 39 degrees, L 37 degrees ER: R 67 degrees, L 64 degrees Obers: L negative PT-OP-M Strength Start: 12/23/24 13:46 Freq: Status: Active Protocol: Document 12/23/24 13:47 SAP BPC ARCHITECT (Rec: 12/23/24 14:35 SAP BPC ARCHITECT Laptop) Hip Strength Hip Manual Muscle Testing L Flexion (L2) 4+ Good+ Extension (S1) 4- Good- Abduction 4- Good- R Flexion (L2) 5 Normal Extension (S1) 4 Good Abduction 4+ Good+ Knee Strength Knee Manual Muscle Testing L Flexion (S2) 4+ Good+ Extension (L3) 5 Normal R Flexion (S2) 5 Normal Extension (L3) 5 Normal Ankle/Foot Strength Ankle and Foot Manual Muscle Testing L Dorsiflexion (L4) 4 Good R Dorsiflexion (L4) 4+ Good+ PT-OP-Q Treatments Start: 12/23/24 13:46 Freq: Status: Active Protocol: Document 12/23/24 13:47 SAP BPC ARCHITECT (Rec: 01/02/25 13:57 SAP BPC ARCHITECT Laptop) Therapeutic Exercises Supine Exercises Knees side to side Side bilateral Reps/Minutes x10 with 5s hold Comments Added to HEP without HO PT-OP-T Assessment and Plan Start: 12/23/24 13:46 Freq: Status: Active Protocol: Document 12/23/24 13:47 SAP BPC ARCHITECT (Rec: 01/02/25 13:41 SAP BPC ARCHITECT Laptop) Physical Therapy Assessment Rehab Potential Rehabilitation Good Potential Evaluation Complexity Number of Personal 1-2 Factors/ Comorbidities Number of Body 3 Systems Impaired Clinical Stable Presentation at Evaluation Impairments Impairments Activity Tolerance,Balance,Functional Activities, Functional Mobility,Pain,ROM,Sensation,Soft Tissue Mobility,Strength Goals 4 Impairment LEFS Impairment Score on eval: 30/80 Planning Feeder Goal (LTG) Pt will improve LEFS score from 30/80 to at least 60/80 in order to improve function. LTG Duration 12 weeks 3 Impairment lack of HEP Short Term Goal (STG Pt will demonstrate ind with progressive HEP in order ) to progress towards LTGs and improve function STG Duration 6 weeks 2 Impairment functional mobility Impairment pain with bending/lifting Planning Feeder Goal (LTG) Pt will demonstrate bending/lifting from floor to standing x10 consecutive with correct form without pain to improve function LTG Duration 12 weeks 1 Impairment balance Impairment SLS on eval R 12s L 5s Planning Feeder Goal (LTG) Pt will improve balance via SLS time to 30s bilaterally on even surface to improve strength, balance, and function. LTG Duration 12 weeks Assessment Summary Assessment Pt presents with L lumbar pain which radiates down LLE, decreased L hip strength compared to R, decreased B hip soft tissue mobility with deficits greater to L than R, decreased balance via SLS L deficits greater than R, and demonstrating preference for lumbar flexion motions vs lumbar extension motions demonstrating weakness of core in neutral position. Pt will highly benefit from skilled PT intervention to address deficits and improve functional mobility. Physical Therapy Plan Frequency and Duration Frequency of 1-2x/wk Treatment Duration of 12 treatment (weeks) Plan of Care Start 12/23/24 Date Plan of Care End 03/17/25 Date Therapeutic Interventions Therapeutic Balance Training,Gait Training,Home Exercise Program, Interventions Manual Therapy,Neuromuscular Re-education,Patient/ Caregiver Education,Sensory Integration,Soft Tissue Mobilization,Taping,Therapeutic Activities,Therapeutic Exercises Modalities Cold Pack/Ice Massage,Hot Packs,Iontophoresis, Ultrasound Next Visit Focus/Plan Next Note Type Treatment Note Next Visit Plan STM to L low back, supine and sidelying hip strengthening, quad stretching, HEP, TA strengthening
--- NOTE | 2024-12-23 17:00 | PT.OPPOC ---
Physical, Occupational & Speech Therapy At [facility] Current Diagnoses Bilateral primary osteoarthritis of hip (12/23/24) Strain of muscle, fascia and tendon of left hip, initial encounter (12/23/24) Visit Care Team Role Provider Type Jennifer Maguire DO Family Provider Physician Primary Care Provider Specialty: Family Practice Address: [address] [place] [address], [address], [address] Email: [email or web address] Yolanda Carrillo PA-C Attending Provider [employer] Instructor Referring Provider Specialty: Medical Wound Care Address: [address] [place] [address], [id number] Email: [email or web address] Plan Of Care PT-OP-B Current Condition Start: 12/23/24 13:46 Freq: Status: Active Protocol: Document 12/23/24 13:47 RECONNAISSANCE MAN (Rec: 12/23/24 14:35 RECONNAISSANCE MAN Laptop) Current Condition History of Current Condition Onset Date ~1 month ago Current Complaints L lateral hip and leg pain History of Current Pt reports L side of body has issues typically, in Condition early November began having a pain to L groin that felt like a muscle spasm, it has gradually moved more laterally to side of leg which is now numb. PCP put her on strong ibuprofen and muscle relaxors. Had to sleep in a chair for a few nights at first and had difficulty standing up straight. Since taking the medications pain has progressively gotten better and is no longer taking muscle relaxors consistently and takes ibuprofen daily. States her doctor thinks this pain came from her low back, which she has a history of pain and PT for L low back pain. Currently has muscle spasms from L leg under butt cheek down to mid calf, set off when walking often or lifting anything from low surface. Walking and standing long periods of time exacerbate L hip pain and sitting down or bending over relieves it. Treatment Goals Patient/Caregiver To stop the pain and to relax the low back muscles if Goals that is where pain is coming from PT-OP-T Assessment and Plan Start: 12/23/24 13:46 Freq: Status: Active Protocol: Document 12/23/24 13:47 RECONNAISSANCE MAN (Rec: 01/02/25 13:41 RECONNAISSANCE MAN Laptop) Physical Therapy Assessment Rehab Potential Rehabilitation Good Potential Evaluation Complexity Number of Personal 1-2 Factors/ Comorbidities Number of Body 3 Systems Impaired Clinical Stable Presentation at Evaluation Impairments Impairments Activity Tolerance,Balance,Functional Activities, Functional Mobility,Pain,ROM,Sensation,Soft Tissue Mobility,Strength Goals 4 Impairment LEFS Impairment Score on eval: 30/80 [facility] Goal (LTG) Pt will improve LEFS score from 30/80 to at least 60/80 in order to improve function. LTG Duration 12 weeks 3 Impairment lack of HEP Short Term Goal (STG Pt will demonstrate ind with progressive HEP in order ) to progress towards LTGs and improve function STG Duration 6 weeks 2 Impairment functional mobility Impairment pain with bending/lifting [employer] T[employer] Goal (LTG) Pt will demonstrate bending/lifting from floor to standing x10 consecutive with correct form without pain to improve function LTG Duration 12 weeks 1 Impairment balance Impairment SLS on eval R 12s L 5s [facility] Goal (LTG) Pt will improve balance via SLS time to 30s bilaterally on even surface to improve strength, balance, and function. LTG Duration 12 weeks Assessment Summary Assessment Pt presents with L lumbar pain which radiates down LLE, decreased L hip strength compared to R, decreased B hip soft tissue mobility with deficits greater to L than R, decreased balance via SLS L deficits greater than R, and demonstrating preference for lumbar flexion motions vs lumbar extension motions demonstrating weakness of core in neutral position. Pt will highly benefit from skilled PT intervention to address deficits and improve functional mobility. Physical Therapy Plan Frequency and Duration Frequency of 1-2x/wk Treatment Duration of 12 treatment (weeks) Plan of Care Start 12/23/24 Date Plan of Care End 03/17/25 Date Therapeutic Interventions Therapeutic Balance Training,Gait Training,Home Exercise Program, Interventions Manual Therapy,Neuromuscular Re-education,Patient/ Caregiver Education,Sensory Integration,Soft Tissue Mobilization,Taping,Therapeutic Activities,Therapeutic Exercises Modalities Cold Pack/Ice Massage,Hot Packs,Iontophoresis, Ultrasound Next Visit Focus/Plan Next Note Type Treatment Note Next Visit Plan STM to L low back, supine and sidelying hip strengthening, quad stretching, HEP, TA strengthening Plan of Care Dates Plan of Care Start Date 12/23/24 Plan of Care End Date 03/17/25 Electronically Signed by: Rekha Wallace, PT 01/02/25 2582 If you are in agreement with this Plan of Care, please return a signed and dated copy. I have reviewed this Plan of Care and certify that the skilled therapy services above are required to meet the patient?s needs. Physician Signature Date Printed Name and Credentials Clinical Instructor Signature Printed Name and Credentials
--- NOTE | 2025-03-10 16:15 | PT.OPDS ---
CORE LAYER MACHINE OPERATOR called pt to check in on why she cancelled all appointments after her initial evaluation and pt states the initial PT evaluation remedied all her problems and she has no further PT needs. She wishes to be discharged from PT. D/C PT. Current Diagnoses Bilateral primary osteoarthritis of hip (12/23/24) Strain of muscle, fascia and tendon of left hip, initial encounter (12/23/24) Visit Care Team Role Provider Type Jennifer Maguire DO Family Provider Physician Primary Care Provider Specialty: Family Practice Address: [address] [place] [address], [address], [address] Email: [email or web address] Yolanda Carrillo PA-C Attending Provider [employer] Manager Referring Provider Specialty: Medical Wound Care Address: [address] [place] [address], [id number] Email: [email or web address] Visit Number Visit Number 1 Discharge Summary PT-OP-A Visit Information Start: 12/23/24 13:46 Freq: Status: Active Protocol: Document 12/23/24 13:47 REAL ESTATE LEASING MANAGER (Rec: 12/23/24 14:35 REAL ESTATE LEASING MANAGER Laptop) Out-Patient Physical Therapy Visit Information Visit Information Visit Type Initial Evaluation Visit Start Time 13:47 Visit Stop Time 14:35 Visit Number 1 Number of CORE LAYER MACHINE OPERATOR Visits 0 Evaluation Information Evaluation Date 12/23/24 PT-OP-B Current Condition Start: 12/23/24 13:46 Freq: Status: Active Protocol: Document 12/23/24 13:47 REAL ESTATE LEASING MANAGER (Rec: 12/23/24 14:35 REAL ESTATE LEASING MANAGER Laptop) Current Condition History of Current Condition Onset Date ~1 month ago Current Complaints L lateral hip and leg pain History of Current Pt reports L side of body has issues typically, in Condition early November began having a pain to L groin that felt like a muscle spasm, it has gradually moved more laterally to side of leg which is now numb. PCP put her on strong ibuprofen and muscle relaxors. Had to sleep in a chair for a few nights at first and had difficulty standing up straight. Since taking the medications pain has progressively gotten better and is no longer taking muscle relaxors consistently and takes ibuprofen daily. States her doctor thinks this pain came from her low back, which she has a history of pain and PT for L low back pain. Currently has muscle spasms from L leg under butt cheek down to mid calf, set off when walking often or lifting anything from low surface. Walking and standing long periods of time exacerbate L hip pain and sitting down or bending over relieves it. Treatment Goals Patient/Caregiver To stop the pain and to relax the low back muscles if Goals that is where pain is coming from PT-OP-C Subjective Start: 12/23/24 13:46 Freq: Status: Active Protocol: Document 12/23/24 13:47 REAL ESTATE LEASING MANAGER (Rec: 01/02/25 13:57 REAL ESTATE LEASING MANAGER Laptop) Patient Questionnaires Lower Extremity Functional Scale LEFS Score 30/80 LEFS Impairment 40 to 59% Impaired (Score 32-47) PT-OP-D Balance Start: 12/23/24 13:46 Freq: Status: Active Protocol: Document 12/23/24 13:47 REAL ESTATE LEASING MANAGER (Rec: 12/23/24 14:35 REAL ESTATE LEASING MANAGER Laptop) Balance Tests Single Limb Standing Single Limb- Right 12s with BUEs out to side and significant med/lat instability of foot Single Limb- Left 5s with BUEs out to side and significant med/lat instability of foot PT-OP-H Neuro Start: 12/23/24 13:46 Freq: Status: Active Protocol: Document 12/23/24 13:47 REAL ESTATE LEASING MANAGER (Rec: 12/23/24 14:35 REAL ESTATE LEASING MANAGER Laptop) Sensation Evaluation Comments Summary Comments N/T to L lateral leg from hip to just above lateral knee PT-OP-K Range of Motion Start: 12/23/24 13:46 Freq: Status: Active Protocol: Document 12/23/24 13:47 REAL ESTATE LEASING MANAGER (Rec: 12/23/24 14:35 REAL ESTATE LEASING MANAGER Laptop) Hip Goniometric Range of Motion Hip ROM Limitations Hip ROM Limitations Soft Tissue Tightness Comments Heel to butt: R 10, L 12 IR: R 39 degrees, L 37 degrees ER: R 67 degrees, L 64 degrees Obers: L negative PT-OP-M Strength Start: 12/23/24 13:46 Freq: Status: Active Protocol: Document 12/23/24 13:47 REAL ESTATE LEASING MANAGER (Rec: 12/23/24 14:35 REAL ESTATE LEASING MANAGER Laptop) Hip Strength Hip Manual Muscle Testing L Flexion (L2) 4+ Good+ Extension (S1) 4- Good- Abduction 4- Good- R Flexion (L2) 5 Normal Extension (S1) 4 Good Abduction 4+ Good+ Knee Strength Knee Manual Muscle Testing L Flexion (S2) 4+ Good+ Extension (L3) 5 Normal R Flexion (S2) 5 Normal Extension (L3) 5 Normal Ankle/Foot Strength Ankle and Foot Manual Muscle Testing L Dorsiflexion (L4) 4 Good R Dorsiflexion (L4) 4+ Good+ PT-OP-T Assessment and Plan Start: 12/23/24 13:46 Freq: Status: Active Protocol: Document 12/23/24 13:47 REAL ESTATE LEASING MANAGER (Rec: 01/02/25 13:41 REAL ESTATE LEASING MANAGER Laptop) Physical Therapy Assessment Rehab Potential Rehabilitation Good Potential Evaluation Complexity Number of Personal 1-2 Factors/ Comorbidities Number of Body 3 Systems Impaired Clinical Stable Presentation at Evaluation Impairments Impairments Activity Tolerance,Balance,Functional Activities, Functional Mobility,Pain,ROM,Sensation,Soft Tissue Mobility,Strength Goals 4 Impairment LEFS Impairment Score on eval: 30/80 Services Clerk Goal (LTG) Pt will improve LEFS score from 30/80 to at least 60/80 in order to improve function. LTG Duration 12 weeks 3 Impairment lack of HEP Short Term Goal (STG Pt will demonstrate ind with progressive HEP in order ) to progress towards LTGs and improve function STG Duration 6 weeks 2 Impairment functional mobility Impairment pain with bending/lifting [facility] Goal (LTG) Pt will demonstrate bending/lifting from floor to standing x10 consecutive with correct form without pain to improve function LTG Duration 12 weeks 1 Impairment balance Impairment SLS on eval R 12s L 5s [facility] Goal (LTG) Pt will improve balance via SLS time to 30s bilaterally on even surface to improve strength, balance, and function. LTG Duration 12 weeks Assessment Summary Assessment Pt presents with L lumbar pain which radiates down LLE, decreased L hip strength compared to R, decreased B hip soft tissue mobility with deficits greater to L than R, decreased balance via SLS L deficits greater than R, and demonstrating preference for lumbar flexion motions vs lumbar extension motions demonstrating weakness of core in neutral position. Pt will highly benefit from skilled PT intervention to address deficits and improve functional mobility. Physical Therapy Plan Frequency and Duration Frequency of 1-2x/wk Treatment Duration of 12 treatment (weeks) Plan of Care Start 12/23/24 Date Plan of Care End 03/17/25 Date Therapeutic Interventions Therapeutic Balance Training,Gait Training,Home Exercise Program, Interventions Manual Therapy,Neuromuscular Re-education,Patient/ Caregiver Education,Sensory Integration,Soft Tissue Mobilization,Taping,Therapeutic Activities,Therapeutic Exercises Modalities Cold Pack/Ice Massage,Hot Packs,Iontophoresis, Ultrasound Next Visit Focus/Plan Next Note Type Treatment Note Next Visit Plan STM to L low back, supine and sidelying hip strengthening, quad stretching, HEP, TA strengthening
== END 2025-03-15 08:54 | disposition home or self-care (01) ==
LOC: PHYS 13:39
PROVIDERS: Family Provider Family Medicine; PCP Family Medicine; Referring Provider Physician Assistant; Visit Provider Physician Assistant
DX: S76.012A Strain of muscle, fascia and tendon of left hip, initial encounter (principal); M16.0 Bilateral primary osteoarthritis of hip
CPT/HCPCS: 97110; 97162

== ENCOUNTER → 2024-12-27 08:38 | Outpatient (CLI) | payer MEDICARE, SELFPAY ==
--- NOTE | 2024-12-27 08:40 | DI.MG.S_ITS ---
MM diagnostic mammo unilat LT: 12/27/2024. BI-RADS: 4 CLINICAL: 64-year old female for left diagnostic mammogram that is a recall from screening on 12/20/2024. Tyrer-Cuzick lifetime risk of 18.6%. Current reported family history of breast cancer: mother. PRIOR EXAMS Mammogram(s): 12/20/2024. Eight Other Exams on 10/10/2023, 10/03/2022, 09/14/2021, 06/29/2020, 10/23/2018, 09/19/2017, 09/20/2016, 09/15/2015. MAMMOGRAPHY TECHNIQUE: 2D and 3D (tomosynthesis) digital mammographic views obtained, with additional images as needed for full coverage. Current study was also evaluated with a Computer Aided Detection (CAD) system. DENSITY Left: B. There are scattered areas of fibroglandular density. MAMMOGRAPHY FINDINGS Left: Upper Outer Quadrant, Middle depth: There are suspicious grouped fine-linear branching calcifications. IMPRESSION: Left (Calcification): Upper Outer Quadrant, Middle depth * Suspicious findings with likelihood of malignancy. RECOMMENDATIONS Left: Upper Outer Quadrant, Middle depth * Stereotactic-guided biopsy for further evaluation. COMMENTS: Findings and recommendations were discussed with the patient by the on-site radiologist during today's examination. OVERALL ASSESSMENT CATEGORY BI-RADS-4: Suspicious. ELECTRONICALLY SIGNED: Tacho Carr M.D. on 12/27/2024 at 09:08:37 AM PT Interpreting Station ID: [id number]
== END ==
LOC: MAMMO 08:38
PROVIDERS: Family Provider Family Medicine; PCP Family Medicine; Referring Provider Family Medicine; Visit Provider Family Medicine
DX: R92.8 Other abnormal and inconclusive findings on diagnostic imaging of breast (principal); R92.1 Mammographic calcification found on diagnostic imaging of breast
CPT/HCPCS: 77065; G0279